=== PATIENT | female | born 1980 | race Hispanic/Latino ===

== ENCOUNTER 2018-10-16 17:09 | Emergency (ER) | payer SELFPAY ==
[2018-10-16] MEDS ORDERED: NA CHLORIDE 0.9% 1,000 ML ONE (18:37)
[2018-10-16] MEDS ORDERED: ACETAMINOPHEN 500 MG TAB ONE (18:37)
[2018-10-16] MEDS ORDERED: ASPIRIN 81 MG CHEWABLE TABLET ONE (18:38)
[2018-10-16 18:44] LABS: Absolute Lymphocytes (CBC) 3.4 K/uL (0.7-4.9); Absolute Monocytes 0.7 K/uL (0.1-1.3); Absolute Neutrophil 4.5 K/uL (1.8-8.0); Eosinophils % 1.6 % (0-4.4); Hematocrit 40.6 % (36.0-45.0); Lymphocytes % 38.8 % (15.3-44.8); MPV 8.5 fL (7.6-11.3); Monocytes % 7.6 % (3.3-12.3); RBC Red Blood Cell Count 4.51 M/uL (3.86-4.86)
[2018-10-16 18:48] LABS: Protime INR 0.93
[2018-10-16 19:19] LABS: ALT/SGPT 20 U/L (12-78); AST/SGOT 17 U/L (15-37); Alkaline Phosphatase 79 U/L (45-117); BUN Blood Urea Nitrogen 12 mg/dL (7-18); Bicarbonate 22 mmol/L (21-32); Bilirubin Direct < 0.1 mg/dL (0-0.2); Bilirubin Total 0.2 mg/dL (0.2-1.0); Glucose Level 88 mg/dL (74-106); Magnesium 2.2 mg/dL (1.8-2.4); NT PRO-BNP 33 pg/mL (<125); Potassium 3.7 mmol/L (3.5-5.1); Protein, Total 7.5 g/dL (6.4-8.2); Sodium Level 140 mmol/L (136-145); Troponin (Emerg Dept Use Only) < 0.02 ng/mL (0.0-0.045)
--- NOTE | 2018-10-16 19:55 | RAD REPORT ---
EXAM DESCRIPTION: RAD - Chest Single View - 10/16/2018 6:42 pm CLINICAL HISTORY: CHEST PAIN Chest pain. COMPARISON: No comparisons FINDINGS: Portable technique limits examination quality. The lungs are grossly clear. The heart is normal in size. No displaced fractures. IMPRESSION: No acute intrathoracic process suspected.
[2018-10-16 20:05] LABS: Urine Blood 2+ (NEG); Urine Glucose NEGATIVE (NEG); Urine Protein NEGATIVE (NEG); Urine Specific Gravity 1.025 (1.005-1.030)
[2018-10-16 20:05] LABS: Urine Specific Gravity 1.025 (1.005-1.030)
[2018-10-16] MEDS ORDERED: cloNIDine HCl 0.1 MG TAB ONE (20:05)
--- NOTE | 2018-10-16 21:06 | EDPHYS ---
Physician Documentation [facility] Name: Shoshana Elena Age: 38 yrs Sex: Female : 1980 Arrival Date: 10/16/2018 Time: 17:14 Bed 27 Private MD: ED Physician Rodríguez Luna HPI: 10/16 19:31 This 38 yrs old Female presents to ER via Ambulatory with complaints of High kb Blood Pressure. 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 kb Onset: The symptoms/episode began/occurred at 15:00. Associated signs and symptoms: Pertinent positives: chest pain, headache, Pertinent negatives: dizziness, dyspnea, lightheadedness, nausea, visual changes, vomiting, weakness. Severity of symptoms: At its worst the blood pressure was moderate, 174 mm Hg. The patient has not experienced similar symptoms in the past. The patient has not recently seen a physician. Pt reports she started having some chest pain at 1500. She went to the nurse's office and was told her bp was high so she needed to come to the ER for evaluation. States she has had this in the past and it was due to anxiety. States STAR testing starts tomorrow and she is very stressed about that. Historical: - Allergies: 17:20 No Known Allergies; ss - Home Meds: 17:20 Cymbalta oral oral as needed [Active]; ss - PMHx: 17:20 None; ss - PSHx: 17:20 None; ss - Immunization history:: Adult Immunizations up to date. - Social history:: Smoking status: Patient/guardian denies using tobacco. - Ebola Screening: : Patient denies exposure to infectious person Patient denies travel to an Ebola-affected area in the 21 days before illness onset. ROS: 19:33 Constitutional: Negative for fever, chills, and weight loss, Eyes: Negative for injury, kb pain, redness, and discharge, ENT: Negative for injury, pain, and discharge, Neck: Negative for injury, pain, and swelling, Respiratory: Negative for shortness of breath, cough, wheezing, and pleuritic chest pain, Abdomen/GI: Negative for abdominal pain, nausea, vomiting, diarrhea, and constipation, Back: Negative for injury and pain, : Negative for injury, bleeding, discharge, and swelling, MS/Extremity: Negative for injury and deformity, Skin: Negative for injury, rash, and discoloration. 19:33 Cardiovascular: Positive for chest pain, Negative for edema, orthopnea, palpitations, paroxysmal nocturnal dyspnea. 19:33 Neuro: Positive for headache, Negative for altered mental status, dizziness, gait disturbance, hearing loss, loss of consciousness, numbness, seizure activity, speech changes, syncope, near syncope, tingling, tinnitus, tremor, visual changes, weakness. Exam: 19:34 Constitutional: This is a well developed, well nourished patient who is awake, alert, kb and in no acute distress. Head/Face: Normocephalic, atraumatic. ENT: Nares patent. No nasal discharge, no septal abnormalities noted. Tympanic membranes are normal and external auditory canals are clear. Oropharynx with no redness, swelling, or masses, exudates, or evidence of obstruction, uvula midline. Mucous membranes moist. Neck: Trachea midline, no thyromegaly or masses palpated, and no cervical lymphadenopathy. Supple, full range of motion without nuchal rigidity, or vertebral point tenderness. No Meningismus. Chest/axilla: Normal chest wall appearance and motion. Nontender with no deformity. No lesions are appreciated. Cardiovascular: Regular rate and rhythm with a normal S1 and S2. No gallops, murmurs, or rubs. Normal PMI, no JVD. No pulse deficits. Respiratory: Lungs have equal breath sounds bilaterally, clear to auscultation and percussion. No rales, rhonchi or wheezes noted. No increased work of breathing, no retractions or nasal flaring. Abdomen/GI: Soft, non-tender, with normal bowel sounds. No distension or tympany. No guarding or rebound. No evidence of tenderness throughout. Back: No spinal tenderness. No costovertebral tenderness. Full range of motion. Skin: Warm, dry with normal turgor. Normal color with no rashes, no lesions, and no evidence of cellulitis. MS/ Extremity: Pulses equal, no cyanosis. Neurovascular intact. Full, normal range of motion. Neuro: Awake and alert, GCS 15, oriented to person, place, time, and situation. Cranial nerves II-XII grossly intact. Motor strength 5/5 in all extremities. Sensory grossly intact. Cerebellar exam normal. Normal gait. 20:49 ECG was reviewed by the Attending Physician. kb Vital Signs: 17:20 BP 174 / 119; Pulse 83; Resp 16; Temp 97.4; Pulse Ox 99% on R/A; Weight 74.84 kg; ss Height 5 ft. 1 in. (154.94 cm); Pain 6/10; 19:30 BP 151 / 106; Pulse 69; Pulse Ox 98% on R/A; jp3 19:56 BP 146 / 101; Pulse 62; Resp 11; Pulse Ox 99% ; rr5 20:25 BP 146 / 102 RA; Pulse 69; Resp 17 S; Pulse Ox 98% on R/A; rr5 20:45 BP 135 / 100 RA; Pulse 70; Resp 16 S; Pulse Ox 98% on R/A; rv 21:21 BP 123 / 92 RA; Pulse 57; Resp 16 S; Pulse Ox 98% on R/A; rv 17:20 Body Mass Index 31.18 (74.84 kg, 154.94 cm) ss MDM: 17:48 Patient medically screened. kb 19:34 Data reviewed: vital signs, nurses notes. Data interpreted: Pulse oximetry: on room air kb is 99 %. Interpretation: normal. 19:44 Counseling: I had a detailed discussion with the patient and/or guardian regarding: the kb historical points, exam findings, and any diagnostic results supporting the discharge/admit diagnosis, lab results, radiology results, the need for outpatient follow up, a family practitioner, to return to the emergency department if symptoms worsen or persist or if there are any questions or concerns that arise at home. 21:04 ED course: Chest pain and headache have resolved. Pt wants to go home to get some sleep kb so she can go to work in the morning. Educated to return for worsening symptoms or any other concerns. . 10/16 18:00 Order name: Basic Metabolic Panel; Complete Time: 19:20 kb 10/16 18:00 Order name: CBC with Diff; Complete Time: 18:50 kb 10/16 18:00 Order name: LFT's; Complete Time: 19:20 kb 10/16 18:00 Order name: Magnesium; Complete Time: 19:20 kb 10/16 18:00 Order name: NT PRO-BNP; Complete Time: 19:20 kb 10/16 18:00 Order name: PT-INR; Complete Time: 18:50 kb 10/16 17:25 Order name: EKG; Complete Time: 17:25 ss 10/16 18:00 Order name: Troponin (emerg Dept Use Only); Complete Time: 19:20 kb 10/16 18:00 Order name: XRAY Chest (1 view); Complete Time: 19:57 kb 10/16 19:59 Order name: Urine Dipstick--Ancillary (enter results); Complete Time: 20:06 ar5 10/16 20:00 Order name: Urine --Ancillary (enter results); Complete Time: 20:06 ar5 10/16 17:25 Order name: EKG - Nurse/Tech; Complete Time: 17:32 ss 10/16 18:00 Order name: Cardiac monitoring; Complete Time: 18:29 kb 10/16 18:00 Order name: IV Saline Lock; Complete Time: 18:27 kb 10/16 18:00 Order name: Labs collected and sent; Complete Time: 18:27 kb 10/16 18:00 Order name: O2 Per Protocol; Complete Time: 18:27 kb 10/16 18:00 Order name: O2 Sat Monitoring; Complete Time: 18:27 kb 10/16 19:31 Order name: Vital Signs; Complete Time: 19:38 kb EC:49 Rate is 73 beats/min. Rhythm is regular, Normal Sinus Rhythm. QRS [place] is Normal. MA kb interval is normal at 146 msec. QRS interval is normal at 68 msec. QT interval is normal at 382 msec. Clinical impression: Normal ECG. Interpreted by me. Reviewed by me. Administered Medications: 18:28 Drug: Aspirin Chewable Tablet 324 mg Route: PO; rv 19:58 Follow up: Response: No adverse reaction rr5 18:29 Drug: Tylenol 1000 mg Route: PO; rv 19:58 Follow up: Response: Pain is decreased rr5 19:50 Drug: cloNIDine 0.1 mg Route: PO; rr5 20:46 Follow up: Response: Blood pressure is lowered rv Disposition: 10/17 07:30 Co-signature as Attending Physician, Rodríguez Luna MD. rn Disposition: 10/16/18 21:06 Discharged to Home. Impression: Chest pain, unspecified. - Condition is Stable. - Discharge Instructions: Nonspecific Chest Pain, [id number], Hypertension, [id number], How to Take Your Blood Pressure, [id number]. - Work release form, Medication Reconciliation Form, Thank You Letter, Antibiotic Education, Prescription Opioid Use form. - Follow up: Emergency Department; When: As needed; Reason: Worsening of condition. Follow up: Private Physician; When: 2 - 3 days; Reason: Recheck today's complaints, Continuance of care, Re-evaluation by your physician. Signatures: Dispatcher [employer] EDMS Cheryle Rojas, LINEN FOLDER-C LINEN FOLDER-Ckb Rodríguez Luna MD MD rn Smirch, Shelby, RN RN ss Nii Askew RN RN rv Rod Eric RN RN rr5 Corrections: (The following items were deleted from the chart) 10/16 21:05 21:04 ED course: Chest pain and headache have resolved. Pt wants to go home to get some kb sleep so she can go to work in the morning. Educated to return for worsening symptoms. . kb 21:22 21:06 10/16/2018 21:06 Discharged to Home. Impression: Chest pain, unspecified. rv Condition is Stable. Forms are Medication Reconciliation Form, Thank You Letter, Antibiotic Education, Prescription Opioid Use. Follow up: Emergency Department; When: As needed; Reason: Worsening of condition. Follow up: Private Physician; When: 2 - 3 days; Reason: Recheck today's complaints, Continuance of care, Re-evaluation by your physician. kb
--- NOTE | 2018-10-16 21:06 | ER ---
Nurse's Notes [facility] Name: Shoshana Elena Age: 38 yrs Sex: Female : 1980 Arrival Date: 10/16/2018 Time: 17:14 Bed 27 Private MD: Diagnosis: Chest pain, unspecified Presentation: 10/16 17:19 Presenting complaint: Patient states: "I was at the school and I had some chest pains. ss They took my blood pressure and said it was high and that I should come in.". Transition of care: patient was not received from another setting of care. Onset of symptoms was October 16, 2018. Risk Assessment: Do you want to hurt yourself or someone else? Patient reports no desire to harm self or others. Initial Sepsis Screen: Does the patient meet any 2 criteria? No. Patient's initial sepsis screen is negative. Does the patient have a suspected source of infection? No. Patient's initial sepsis screen is negative. Care prior to arrival: None. 17:19 Method Of Arrival: Ambulatory ss 17:19 Acuity: TABITHA 3 ss Historical: - Allergies: 17:20 No Known Allergies; ss - Home Meds: 17:20 Cymbalta oral oral as needed [Active]; ss - PMHx: 17:20 None; ss - PSHx: 17:20 None; ss - Immunization history:: Adult Immunizations up to date. - Social history:: Smoking status: Patient/guardian denies using tobacco. - Ebola Screening: : Patient denies exposure to infectious person Patient denies travel to an Ebola-affected area in the 21 days before illness onset. Screenin:37 Abuse screen: Denies threats or abuse. Denies injuries from another. Nutritional rv screening: No deficits noted. Tuberculosis screening: No symptoms or risk factors identified. Fall Risk None identified. Assessment: 17:35 General: Appears in no apparent distress. comfortable, Behavior is calm, cooperative. rv Pain: Complains of pain in chest. Neuro: Level of Consciousness is awake, alert, obeys commands, Oriented to person, place, time, situation. Cardiovascular: Capillary refill < 3 seconds. Respiratory: Airway is patent. GI: No signs and/or symptoms were reported involving the gastrointestinal system. : No signs and/or symptoms were reported regarding the genitourinary system. EENT: No signs and/or symptoms were reported regarding the EENT system. Derm: Skin is intact. Musculoskeletal: No signs and/or symptoms reported regarding the musculoskeletal system. 19:58 Reassessment: Patient appears in no apparent distress at this time. No changes from rr5 previously documented assessment. Patient and/or family updated on plan of care and expected duration. Pain level reassessed. Patient is alert, oriented x 3, equal unlabored respirations, skin warm/dry/pink. Vital Signs: 17:20 BP 174 / 119; Pulse 83; Resp 16; Temp 97.4; Pulse Ox 99% on R/A; Weight 74.84 kg; ss Height 5 ft. 1 in. (154.94 cm); Pain 6/10; 19:30 BP 151 / 106; Pulse 69; Pulse Ox 98% on R/A; jp3 19:56 BP 146 / 101; Pulse 62; Resp 11; Pulse Ox 99% ; rr5 20:25 BP 146 / 102 RA; Pulse 69; Resp 17 S; Pulse Ox 98% on R/A; rr5 20:45 BP 135 / 100 RA; Pulse 70; Resp 16 S; Pulse Ox 98% on R/A; rv 21:21 BP 123 / 92 RA; Pulse 57; Resp 16 S; Pulse Ox 98% on R/A; rv 17:20 Body Mass Index 31.18 (74.84 kg, 154.94 cm) ss ED Course: 17:14 Patient arrived in ED. mr 17:19 Triage completed. ss 17:20 Arm band placed on right wrist. ss 17:21 Nii Askew, RN is Primary Nurse. rv 17:37 Patient has correct armband on for positive identification. Placed in gown. Bed in low rv position. Call light in reach. Side rails up X 1. Adult w/ patient. Pulse ox on. NIBP on. 17:48 Cheryle Rojas FNP-C is PHCP. kb 17:48 Rodríguez Luna MD is Attending Physician. kb 18:25 Initial lab(s) drawn, by me, sent to lab. Inserted saline lock: 22 gauge in right jp3 forearm, using aseptic technique. Blood collected. 18:27 Troponin (emerg Dept Use Only) Sent. jp3 18:27 Basic Metabolic Panel Sent. jp3 18:27 CBC with Diff Sent. jp3 18:27 LFT's Sent. jp3 18:27 Magnesium Sent. jp3 18:27 PT-INR Sent. jp3 18:27 NT PRO-BNP Sent. jp3 18:40 XRAY Chest (1 view) In Process Unspecified. EDMS 21:21 No provider procedures requiring assistance completed. IV discontinued, intact, rv bleeding controlled, No redness/swelling at site. Pressure dressing applied. Administered Medications: 18:28 Drug: Aspirin Chewable Tablet 324 mg Route: PO; rv 19:58 Follow up: Response: No adverse reaction rr5 18:29 Drug: Tylenol 1000 mg Route: PO; rv 19:58 Follow up: Response: Pain is decreased rr5 19:50 Drug: cloNIDine 0.1 mg Route: PO; rr5 20:46 Follow up: Response: Blood pressure is lowered rv Outcome: 21:06 Discharge ordered by . kb 21:21 Discharged to home ambulatory. rv 21:21 Condition: good 21:21 Discharge instructions given to patient, Instructed on discharge instructions, follow up and referral plans. Demonstrated understanding of instructions, follow-up care. 21:22 Patient left the ED. rv Signatures: Dispatcher [employer] EDMS Cheryle Rojas, SIDE SAWYER-C SIDE SAWYER-Gisselle Hammer mr Gina Perez, RN RN Nii Askew, RN RN rv Chris Serrato jp3 Rod Eric, RN RN rr5
--- NOTE | 2018-10-17 11:46 | EKG ---
Test Date: 2018-10-16 Test Time: 17:29:58 Provider Relations Specialist: MEASUREMENT RESULTS: Intervals: Rate: 73 [place]: 146 QRSD: 68 QT: 382 QTc: 420 [place]: P: 58 NJ: 146 QRS: 66 T: 37 INTERPRETIVE STATEMENTS: Normal sinus rhythm Normal ECG No previous ECG available for comparison Electronically Signed On 10-17-18 10:05:50 CDT by Jason Altamirano
== END 2018-10-16 21:22 | disposition home or self-care (01) ==
LOC: ER 17:09
DX: R07.9 Chest pain, unspecified (principal)
CPT/HCPCS: 36415; 71045; 80048; 80076; 81003; 81025; 83735; 83880; 84484; 85025; 85610; 93005; 99284; J7030

== ENCOUNTER 2024-08-08 19:47 | Emergency (ER) | payer OTHER, SELFPAY ==
--- OUTSIDE RECORDS SUMMARY | 2024-08-08 19:51 | XMS REPORT | Continuity of Care Document ---
Author Name Unknown Address [address] [facility] [address] [place] [address] [facility] thconnect Address [address] [facility]. [address] [place] [address] Care Team Providers Care Instrument Technician Apprentice Name Role Phone Pcp, Patient Does Not Have A Primary Care Physic mirna Campaigns, Generic Provider Attending Clinician Unavailable GEORGINA VELEZ Attending Clinician Unavailable Georgina Choe Attending Clinician [phone] Ivis Kearns DO Attending Clinician [phone] IVIS KEARNS Attending Clinician Unavailab le Therapy, Adc Covid Infusion Attending Clinician Unavailable Ricardo Carballo MD Attending Clinician [phone] RICARDO CARBALLO Attending Clinician Unavailable Doctor Unassigned, Demorest Attending Clinician U Shanel Harris MD Attending Clinician [phone] SHANEL GONZALEZ Attending Clinician Unavailable Lidia Quick Attending Clinician [phone] LIDIA CARRERO Attending Clinician Unavailable GEORGINA VELEZ Admitting Clinician Unavailable IVIS KEARNS Admitting Clinician Unavailab serena Payers Payer Name Policy Type Policy Number Effective Date Expirati on Date Source [facility]MERLY [facility] [id number] 2015 00:00:00 Problems Condition Name Condition Details Condition Category Status Onset Date Resolution Date Last Treatment Date Treating Clinician Comments Source SLE exacerbati on SLE exacerbati on Disease Active 12-03 00:00: 00 [facility] Allergies, Adverse Reactions, Alerts Allergy Name Allergy Type Status Severity Reaction(s) Onset Date Inactive Date Treating Clinician Comments Source NO KNOWN ALLERGIE S Drug Class Active [facility] Social History Social Habit Start Date Stop Date Quantity Comments Source [facility] SDOH Alcohol Frequency [facility] History SDOH Alcohol Std Drinks [facility] History SDOH Alcohol Binge [facility] Exposure to SARS-CoV-2 (event) 2022-04-07 00:00:00 2022-04-17 13:33:00 Not sure [facility] Alcoholic beverage intake 2022-04-17 00:00:00 2022-04-17 00:00:00 Current drinker of alcohol (finding) [facility] History of Social function 2022-04-17 00:00:00 2022-04-17 00:00:00 [facility] Alcohol intake 2022-04-17 00:00:00 2022-04-17 00:00:00 Current drinker of alcohol (finding) [facility] Tobacco use and exposure 2017-12-02 00:00:00 2017-12-02 00:00:00 Smokeless tobacco non-user [facility] Alcohol Comment 2017-12-02 00:00:00 2017-12-02 00:00:00 occasional [facility] Sex assigned at 1980 00:00:00 1980 00:00:00 [facility] Smoking Status Start Date Stop Date Source Never smoked tobacco [facility] Medications Ordered Medication Name Filled Medication Name Start Date Stop Date Current Medication? Ordering Clinician Indication Dosage Frequency Signature (SIG) Comments Components Source iopamidol (ISOVUE 370-500 mL) injection 100 mL 11-16 16:15: 00 11-16 16:15 :00 No [id number] 100mL 100 mL, Intravenou s, ONCE, 1 dose, On Ayanna 11/17/23 at 1115, Routine [facility] LORazepam (ATIVAN) injection 1 mg 11-16 15:45: 00 11-16 15:49 :00 No 1mg 1 mg, Slow IV Push, ONCE, 1 dose, On Ayanna 11/17/23 at 1045, STAT [facility] aspirin chewable tablet 324 mg 11-16 14:30: 00 11-16 14:31 :00 No 324mg 324 mg, Oral, ONCE, 1 dose, On Ayanna 11/17/23 at 0930, STAT [facility] hydrOXYzine 25 mg tablet 11-16 00:00: 00 Yes [id number] 25mg Take 1 tablet by mouth every 8 (eight) hours as needed for Anxiety. [facility] ketorolac (TORADOL) injection 15 mg 2021-07 18:45: 00 04-17 18:40 :00 No 15mg 15 mg, Slow IV Push, ONCE, 1 dose, On 04/17/22 at 1345, AURELIO [facility] casirivimab -imdevimab (REGEN-COV (EUA)) injection (CO-FORMULA TION) 1,200 mg 2020-07 01:15: 00 06-30 23:58 :00 No [id number] 1200mg 1,200 mg, Subcutaneo us, ONCE, 1 dose, On Tue06/30/21 at 1915, Routine [facility] diazePAM (VALIUM) injection 5 mg 2019-07 05:30: 00 04-28 04:26 :00 No 5mg 5 mg, Slow IV Push, ONCE, 1 dose, 04/28/20 at 0030, STAT [facility] meclizine 25 mg tablet 2019-07 00:00: 00 Yes [id number] 25mg Take 1 tablet by mouth every 6 (six) hours. [facility] ondansetron (ZOFRAN) 4 mg tablet 2019-07 00:00: 00 Yes [id number] 4mg Take 1 tablet by mouth every 8 (eight) hours as needed for Nausea and Vomiting (N/V). [facility] aspirin tablet 325 mg 10-08 05:00: 00 10-08 03:53 :00 No 325mg 325 mg, Oral, ONCE, 1 dose, 10/09/19 at 0000, STAT [facility] traMADOL 50 mg tablet 7-08 00:00: 00 10-07 00:00 :00 No 50mg Take 1 tablet by mouth every 6 (six) hours as needed for Pain (scale 7-10). [facility] ondansetron 4 mg disintegrat ing tablet 5 00:00: 00 10-07 00:00 :00 No 4mg Take 1 tablet by mouth every 8 (eight) hours as needed for Nausea and Vomiting (N/V). [facility] cyclobenzap rine (FLEXERIL) 5 mg tablet 09-10 00:00: 00 10-07 00:00 :00 No 5mg Take 1 Tab by mouth 3 (three) times daily as needed for Muscle Spasms (best use is at night before bed). [facility] Vital Signs Vital Name Observation Time Observation Value Comments S ource Systolic blood pressure 2023-11-17 18:00:00 129 mm[Hg] [facility] Diastolic blood pressure 2023-11-17 18:00:00 93 mm[Hg] [facility] Heart rate 2023-11-17 18:00:00 89 /min [facility] Respiratory rate 2023-11-17 18:00:00 16 /min [facility] Oxygen saturation in Arterial blood by Pulse oximetry 2023-11-17 18:00:00 100 /min [facility] Body temperature 2023-11-17 14:07:00 36.94 Betty [facility] Body height 2023-11-17 14:07:00 154.9 cm [facility] Body weight 2023-11-17 14:07:00 77.111 kg [facility] BMI 2023-11-17 14:07:00 32.12 kg/m2 [facility] Systolic blood pressure 2022-04-17 20:45:00 131 mm[Hg] [facility] Diastolic blood pressure 2022-04-17 20:45:00 104 mm[Hg] [facility] Body temperature 2022-04-17 20:45:00 36.67 Betty [facility] Heart rate 2022-04-17 20:30:00 70 /min [facility] Respiratory rate 2022-04-17 20:30:00 17 /min [facility] Oxygen saturation in Arterial blood by Pulse oximetry 2022-04-17 20:30:00 100 /min [facility] Body height 2022-04-17 18:24:00 154.9 cm [facility] Body weight 2022-04-17 18:24:00 74.844 kg [facility] BMI 2022-04-17 18:24:00 31.18 kg/m2 [facility] Systolic blood pressure 2021-07-01 00:43:00 145 mm[Hg] [facility] Diastolic blood pressure 2021-07-01 00:43:00 105 mm[Hg] [facility] Heart rate 2021-07-01 00:43:00 85 /min [facility] Body temperature 2021-07-01 00:43:00 36.44 Betty [facility] Respiratory rate 2021-07-01 00:43:00 16 /min [facility] Oxygen saturation in Arterial blood by Pulse oximetry 2021-07-01 00:43:00 96 /min [facility] Body height 2021-06-30 23:57:00 154.9 cm [facility] Body weight 2021-06-30 23:57:00 75.297 kg [facility] BMI 2021-06-30 23:57:00 31.37 kg/m2 [facility] Systolic blood pressure 2020-04-28 05:00:00 119 mm[Hg] [facility] Diastolic blood pressure 2020-04-28 05:00:00 79 mm[Hg] [facility] Heart rate 2020-04-28 05:00:00 63 /min [facility] Respiratory rate 2020-04-28 05:00:00 13 /min [facility] Oxygen saturation in Arterial blood by Pulse oximetry 2020-04-28 05:00:00 95 /min [facility] Body temperature 2020-04-28 02:40:00 36.89 Betty [facility] Body weight 2020-04-28 02:40:00 76.204 kg [facility] BMI 2020-04-28 02:40:00 31.74 kg/m2 [facility] Systolic blood pressure 2019-10-09 05:59:00 127 mm[Hg] [facility] Diastolic blood pressure 2019-10-09 05:59:00 87 mm[Hg] [facility] Heart rate 2019-10-09 05:59:00 74 /min [facility] Respiratory rate 2019-10-09 05:59:00 19 /min [facility] Oxygen saturation in Arterial blood by Pulse oximetry 2019-10-09 05:59:00 98 /min [facility] Body temperature 2019-10-09 03:20:00 37.17 Betty [facility] Body height 2019-10-09 03:20:00 154.9 cm [facility] Body weight 2019-10-09 03:20:00 77.111 kg [facility] BMI 2019-10-09 03:20:00 32.12 kg/m2 [facility] Procedures Procedure Date / Time Performed Performing Clinician Source TROPONIN I 2023-11-17 17:29:00 eGorgina Velez [facility] XR CHEST 1 VW 2023-11-17 15:33:22 Georgina Velez [facility] CT ANGIOGRAM CHEST 2023-11-17 15:20:30 Georgina Velez [facility] CT ANGIOGRAM ABDOMEN/PELVIS 2023-11-17 15:20:30 Georgina Velez [facility] TROPONIN I 2023-11-17 14:32:00 Georgina Velez [facility] COMP. METABOLIC PANEL ([id number]) 2023-11-17 14:32:00 Georgina Velez [facility] CBC WITH DIFF 2023-11-17 14:32:00 Georgina Velez [facility] N-TERMINAL PRO-BNP 2023-11-17 14:32:00 Goergina Velez [facility] HB ECG ROUTINE & RHYTHM STRIP 2023-11-17 14:10:39 Georgina Velez [facility] XR CHEST 1 VW 2022-04-17 18:49:55 Ivis Kearns [facility] CONSENT/REFUSAL FOR DIAGNOSIS AND TREATMENT 2022-04-17 18:39:23 Doctor Unassigned, Demorest [facility] MAGNESIUM 2022-04-17 18:36:00 Ivis Kearns [facility] TROPONIN I 2022-04-17 18:36:00 Ivis Kearns [facility] COMP. METABOLIC PANEL ([id number]) 2022-04-17 18:36:00 Ivis Kearns [facility] CBC WITH DIFF 2022-04-17 18:36:00 Ivis Kearns [facility] HB ECG ROUTINE & RHYTHM STRIP 2022-04-17 18:25:36 Ivis Kearns [facility] IMMTRAC2 CONSENT 2021-06-30 06:01:00 Doctor Unas signed, Demorest [facility] CT HEAD WO CONTRAST 2020-04-28 04:41:21 Shanel Gonzalez [facility] POCT TEST 2020-04-28 03:51:00 Shanel Gonzalez [facility] URINALYSIS 2020-04-28 03:50:00 Shanel Gonzalez [facility] COMP. METABOLIC PANEL ([id number]) 2020-04-28 03:27:00 Shanel Gonzalez [facility] CBC WITH DIFF 2020-04-28 03:27:00 Shanel Gonzalez [facility] EKG-12 LEAD 2020-04-28 03:25:38 Shanel Gonzalez [facility] TROPONIN I 2019-10-09 04:03:00 Lidia Carrero [facility] COMP. METABOLIC PANEL ([id number]) 2019-10-09 04:03:00 Lidia Carrero [facility] CBC WITH DIFFERENTIAL 2019-10-09 04:03:00 Lidia Carrero [facility] D-DIMER 2019-10-09 04:03:00 Lidia Carrero [facility] ASSIGNMENT OF BENEFITS 2019-10-09 03:14:13 Docto r Unassigned, Demorest [facility] Encounters Start Date/Time End Date/Time Encounter Type Admission Type Attending Clinicians Care Facility Care Department Encounter ID Source 2022-08-14 16:00:51 Outpatient [facility] [id number] [facility] 2023-11-30 00:00:00 2023-11-30 10:22:00 Letter (Out) Campaigns, Generic Provider [facility] [id number] 350.1.13.10 4.2.7.2.686 [id number] [facility] 2023-11-17 09:08:00 2023-11-17 13:36:00 Emergency X GEORGINA VELEZ [facility] ERT [id number] [facility] 2023-11-17 09:08:00 2023-11-17 13:36:00 Emergency Georgina Velez [facility] [id number] 350.1.13.10 4.2.7.2.686 [id number] [facility] 2022-04-17 13:22:00 2022-04-17 16:05:00 Emergency Ivis Kearns [facility] 1.2.840.114 350.1.13.10 4.2.7.2.686 [id number] [facility] 2022-04-17 13:22:00 2022-04-17 16:05:00 Emergency IVIS ROBERTS [facility] ERT [id number] [facility] 2021-06-30 18:00:00 2021-06-30 19:00:00 Nurse Visit Therapy, Adc Covid Infusion Ricardo Carballo [facility] 1.2840.114 350.1.13.10 4.2.7.2.686 [id number] [facility] 2021-06-30 18:00:00 2021-06-30 18:00:00 Outpatient R RICARDO CARBALLO [facility] [id number] [facility] 2021-06-30 00:00:00 2021-06-30 00:00:00 Orders Only Doctor Unassigned, Demorest [facility] 1.2840.114 350.1.13.10 4.2.7.2.686 [id number] [facility] 2020-04-27 21:36:00 2020-04-28 00:59:00 Emergency Shanel Gonzalez [facility] 1.2840.114 350.1.13.10 4.2.7.2.686 [id number] [facility] 2020-04-27 21:36:00 2020-04-27 21:36:00 Emergency X SHANEL GONZALEZ [facility] ERT [id number] [facility] 2019-10-08 22:22:52 2019-10-09 01:15:00 Emergency Cody Lidia Torres [facility] 1.2840.114 350.1.13.10 4.2.7.2.686 [id number] [facility] 2019-10-08 22:22:52 2019-10-08 22:22:52 Emergency X ATUL CARREROYA [facility] ERT [id number] [facility] Results Test Description Test Time Test Comments Results Result Co mments Source [facility] [id number] 16:06:05HISTORY: Rule out AAA TECHNIQUE: Contrast-enhanced 64-mutidetector CT scan of the chest wascompleted with intravenous injection of ?non ionic contrast medium.Subsequently numerous sagittal, coronal and MIP reformations weregenerated. FINDINGS: The right lobe of the thyroid gland contains a 7 mm nodule.Trachea is deviated slightly toward the right side without any evidentlesion. Bronchial airways appear normal. Lung parenchyma showed subtle groundglass hazy changes without focalconsolidation. Nopneumothorax or pneumomediastinum. No pleural effusion orpericardial effusion. No enlarged lymph nodes in the javon or themediastinum. Chest wall soft tissues appear normal. No acute pulmonary thromboembolism detected. No significant coronaryatherosclerosis Bones showed no aggressive lesions or any acute findings. *Aortic root: 3.2 cm. *Ascending aorta: 3.2 ?cm proximal segment, ?3.2 cm distal segment. *Aortic arch: 2.7 cm in mid segment. *Descending aorta: 2.2 cm proximal segment, ?2.0 cm at the level ofdiaphragm. *Pulmonary artery: Main pulmonary artery is 2.3 cm. CONCLUSIONS: Essentially normal [facility]/[id number] 16:00:12HISTORY: Concern for AAA. TECHNIQUE: Spiral 64-Multidetector studies were obtained before and aftercontrast injection. CT angiography of the abdominal aorta and majorintra-abdominal arteries using nonionic contrast medium. Subsequentlymultiplanar reformations, volume rendering 3-D angiographic images of therenal arteries were generated. DOSE: ?Up-to-date CT equipment and radiation dose reduction techniques wereemployed. CTDIvol: ?1.19+12.24+1.2 to +4.90+11.7 mGy. DLP:1.68+2.38+586+1.22 +4.90+805 MGy-cm. FINDINGS: Lower visualized lungs appear clear. Small hiatal hernia noted. Focal area of flash enhancement of the liver parenchyma noted in bothparietal lobe and left lobe. No suspicious liver lesions are visualized.Mild thickening of the gallbladder wall is noted. No gallstones visualized.Liver is 12.8 cm and spleen is 10.5 cm. Biliary ducts and the pancreaticduct appear of normal size. Posterior wall of the fundus of uterus showed 1.7 cm diverticulum.Generalized diverticulosis noted of large bowel without any focal acutechanges of diverticulitis. Normal appendix is visualized. No kidney stones detected. No enhancing kidney lesions. No obstructivehydronephrosis or hydroureter. Uterus is bulky, measuring 11.4 from fundus to external os of the cervix,4.9 cm in AP and 6.8 cm in transverse diameter. Asymmetrical thickening ofthe posterior wall of the lower body of the uterus noted without discretefibroid. Multiple subcentimeter cysts are seen in both ovaries and there isone 2.8 cm cyst adjacent to the right ovary in posterior cul-de-sac. Unopacified urinary bladder showed no gross pathology. A smallfat-containing umbilical hernia noted without any complications.No aggressive bone lesions or any acute changes in visualized bonesdetected. Abdominal aortogram: Entire abdominalaorta is well visualized and showedno atherosclerosis except for minimal focal calcification in theleftlateral wall close to the origin of left renal artery. No abdominal aorticaneurysm detected. 2 right renal arteries and one left renal artery noted supplying thekidneys. Celiac axis, SMA and EM a rteries are all normal. Common iliac, internal iliac, external iliac and common femoral arteries aswell as proximal segments of SFA/profunda arteries appear normal. CONCLUSIONS: Essentially normal CTscan of abdomen without and withcontrast, including CT angiogram studies. No abdominal aortic aneury smdetected.[facility] 1 [id number] 15:40:10 HISTORY: STEMI. TECHNIQUE: Portable AP view of the chest is obtained. Comparison is madewith 04/17/2022 study. FINDINGS: No acute pneumonia. No pneumothorax or pleural effusion orpulmonary congestion detected. Cardiac size is within normal limits. CONCLUSIONS: No signs of acute cardiopulmonary disease.[facility] Center[facility]roponin [id number] 15:21:38* Test Item Value Reference Range Interpretation Comme nts TROPONIN I (test code = 2072142279) 0.002 ng/mL <=0.034 VINEET (test code = VINEET) Reference (Normal) Range (defined by the 99th percentile reference limit): <= 0.034 ng/mL Note: Cardiac troponin begins to rise 3-4 hours after the onset of ischemia. Repeat in 4-6 hours if the sample was drawn within 3-4 hours of the onset of the symptom and found normal. Diagnosis of myocardial injury is made with acute changes in cTn concentrations with at least one serial sample above the 99th percentile upper reference limit (URL), taken together with the patient's clinical presentation. Biotin has been reported to cause a negative bias, interpret results relative to patient's use of biotin. Lab Interpretation (test code = 51049-3) Normal [facility] Oom-[id number] 15:18:57* Test Item Value Reference Range Interpretation Comme nts NT-proBNP (test code = 16449-7) 32 pg/mL <=125 Lab Interpretation (test cod e = 86491-2) Normal [id number] 15:09:55* Test Item Value Reference Range Interpretation Comme nts NA (test code = 0841785799) 138 mmol/L 135-145 K (test code = 7997228596) 4.3 mmol/L 3.5-5.0 CL (test code = 1659653849) 104 mmol/L 98-108 CO2 TOTAL (test code = 8688202810) 26 mmol/L 23-31 AGAP (test code = 3819388897) 8 2-16 BUN (test code = 7035317300) 10 mg/dL 7-23 GLUCOSE (test code = 5726718303) 105 mg/dL 70-110 CREATININE (test code = 2160-0) 0.85 mg/dL 0.50-1.04 TOTAL BILI (test code = 2537819231) 0.5 mg/dL 0.1-1.1 CALCIUM (test code = 6609848386) 9.2 mg/dL 8.6-10.6 T PROTEIN (test code = 8240576363) 7.8 g/dL 6.3-8.2 ALBUMIN (test code = 8428734835) 4.6 g/dL 3.5-5.0 ALK PHOS (test code = 3673250495) 82 U/L 34-122 ALTv (test code = 1742-6) 18 U/L 5-35 AST(SGOT) (test code = 9714466670) 33 U/L 13-40 eGFR (test code = 95749-1) 86.8 mL/min/1.73m2 CKD-EPI eGFR (20 21). Assuming creatinine has been stable day-to-day for at least three months, the eGFR indicates Category G2 (60 - 89 mL/min/1.73 m2) [facility] with [id number] 14:57:37* Test Item Value Reference Range Interpretation Comme nts WBC (test code = 6690-2) 8.45 4.30-11.10 RBC (test code = 789-8) 4.96 3.93-5.25 HGB (test code = 718-7) 13.1 g/dL 11.6-15.0 HCT (test code = 4544-3) 41.3 % 35.7-45.2 MCV (test code = 787-2) 83.3 fL 80.6-95.5 MCH (test code = 785-6) 26.4 pg 25.9-32.8 MCHC (test code = 786-4) 31.7 g/dL 31.6-35.1 RDW-SD (test code = 37898-2) 42.3 fL 39.0-49.9 RDW-CV (test code = 788-0) 14.0 % 12.0-15.5 PLT (test code = 777-3) 410 166-358 H MPV (test code = 12800-4) 9.9 fL 9.5-12.9 NRBC/100 WBC (test code = 5296729678) 0.0 0.0-10.0 NRBC x10^3 (test code = 9811892984) See_Comment [Automated messa ge] The system which generated this result transmitted reference range: 10*3/?L. The reference range was not used to interpret this result as normal/abnormal. GRAN MAT (NEUT) % (test code = 770-8) 60.0 % IMM GRAN % (test code = 2058629269) 0.40 % LYMPH % (test code = 736-9) 29.2 % MONO % (test code = 5905-5) 7.5 % EOS % (test code = 713-8) 2.2 % BASO % (test code = 706-2) 0.7 % GRAN MAT x10^3(ANC) (test code = 0686858749) 5.07 10*3/uL 1.88-7.09 IMM GRAN x10^3 (test code = 1862749571) 0.03 10*3/uL 0.00-0.06 LYMPH x10^3 (test code = 731-0) 2.47 10*3/uL 1.32-3.29 MONO x10^3 (test code = 742-7) 0.63 10*3/uL 0.33-0.92 EOS x10^3 (test code = 711-2) 0.19 10*3/uL 0.03-0.39 BASO x10^3 (test code = 704-7) 0.06 10*3/uL 0.01-0.07 Lab Interpretation (test code = 02252-3) Abnormal [facility] [id number] 05:12:11No acute intracranial abnormality. Preliminary Report Dictated by Resident: Alfonso Chery I, Randy Ovalles MD., have reviewed this study and agree with theabove report.EXAM: CT HEAD WO CONTRAST HISTORY: ?Dizziness, non-specific TECHNIQUE: Spiral CT head without contrast with 2.5 mm thickness and withcoronal and sagittal reconstruction. COMPARISON: None FINDINGS: The ventricles and cerebral sulci are normal in caliber and configuration.No hydrocephalus, midline shift or pathological extra-axial fluidcollection is present. The basal cisterns are unremarkable. There is no acute intracranialhemorrhage or significant mass effect. Noparenchymal attenuation abnormality. The montoya-white matter differentiationis preserved. The mastoid air cells and paranasal air sinuses are clear. The calvarium and central skull base are unremarkable. [facility], Radiant Results Inft User - 04/28/2020 12:13 AM CDTEXAM: CT HEAD WO CONTRASTHISTORY: Dizziness, non-specific TECHNIQUE: Spiral CT head without contrast with 2.5 mm thickness and withcoronal and sagittal reconstruction.COMPARISON: None FINDINGS:The ventricles and cerebral sulci are normal in caliber and configuration.No hydrocephalus, midline shift or pathological extra-axial fluidcollection is present. The basal cisterns are unremarkable.There isno acute intracranial hemorrhage or significant mass effect. Noparenchymal attenuation abnormality.The montoya-white matter differentiationis preserved.The mastoid air cells and paranasal air sinuses are clear. The calvarium and central skull base are unremarkable.IMPRESSIONNo acute intracranial abnormality.Preliminary Report Dictated by Resident: Alfonso Kiser Randy Ovalles MD., have reviewed this study and agree with theabove report.[facility] [id number] 04:50:00* Test Item Value Reference Range Interpretation Comme nts APPEARANCE (test code = 7914446561) Cloudy Clear A COLOR (test code = 8743301654) Yellow Yellow PH (test code = 8725946634) 4.8-8.0 SP GRAVITY (test code = 7180351148) 1.003-1.030 GLU U QUAL (test code = 7404342999) Normal Normal BLOOD (test code = 4780962031) 2+ Negative A KETONES (test code = 6427537985) Negative Negative PROTEIN (test code = 2887-8) Negative Negative UROBILIN (test code = 5863606126) Normal Normal BILIRUBIN (test code = 0854098865) Negative Negative NITRITE (test code = 1438971247) Positive Negative A LEUK DANIEL (test code = 6634527299) Negative Negative RBC/HPF (test code = 5744530736) See_Comment [Automated messa ge] The system which generated this result transmitted reference range: 0 - 3 HPF. The reference range was not used to interpret this result as normal/abnormal. WBC/HPF (test code = 4717761363) See_Comment [Automated messa ge] The system which generated this result transmitted reference range: 0 - 5 HPF. The reference range was not used to interpret this result as normal/abnormal. BACTERIA (test code = 5363077973) Few Negative A MUCOUS (test code = 6077781365) Slight Negative LPF A SQ EPITH (test code = 5607903122) HPF YEAST BUD (test code = 1454090614) See_Comment H [Automated messa ge] The system which generated this result transmitted reference range: <=1 HPF. The reference range was not used to interpret this result as normal/abnormal. Lab Interpretation (test code = 32798-4) [facility][id number][facility]2020-[facility]-28 04:20:00* Test Item Value Reference Range Interpretation Comme nts NA (test code = 8678732986) 138 mmol/L 135-145 K (test code = 4360672266) 3.7 mmol/L 3.5-5 CL (test code = 1705802835) 104 mmol/L 98-108 CO2 TOTAL (test code = 1112676071) 25 mmol/L 23-31 AGAP (test code = 4042645874) 2-16 BUN (test code = 1157079035) 17 mg/dL 7-23 GLUCOSE (test code = 7651200660) 101 mg/dL 70-110 CREATININE (test code = 5298460922) 0.78 mg/dL 0.5-1.04 TOTAL BILI (test code = 4623929820) 0.4 mg/dL 0.1-1.1 CALCIUM (test code = 0736943980) 8.6 mg/dL 8.6-10.6 T PROTEIN (test code = 7814787945) 6.7 g/dL 6.3-8.2 ALBUMIN (test code = 1273963721) 3.9 g/dL 3.5-5 ALK PHOS (test code = 1493299538) 58 U/L 34-122 ALTv (test code = 1742-6) 19 U/L 5-35 AST(SGOT) (test code = 1983666339) 26 U/L 13-40 eGFR Calculation (Non-) (test code = 6167643058) mL/min/1.73m2 eGFR Calculation () (test code = 5764985747) mL/min/1.73m2 VINEET (test code = VINEET) Association of Glomerular Filtration Rate (GFR) and Staging of Kidney Disease* + -+ + ---+| GFR (mL/min/1.73 m2) ?| With Kidney Damage ?| ?Without Kidney Damage+ -------+ ------+ ---------+| ?>90 ?| ?Stage one ?| ? Normal ?+ --+ -+ ----+| ?60-89 ?| ?Stage two ?| ? Decreased GFR ? + -+ + ---+| ?30-59 ?| ?Stage three ?| ? Stage three ? + -+ + ---+| ?15-29 ?| ?Stage four ? | ? Stage four ?+ --+ -+ ----+| ?<15 (or dialysis) ? ?| ?Stage five ? | ? Stage five ?+ --+ -+ ----+ *Each stage assumes the associated GFR level has been in effect for at least three months. ?Stages 1 to 5, with or without kidney disease, indicate chronic kidney disease. Notes: Determination of stages one and two (with eGFR >59mL/min/1.73 m2) requires estimation of kidney damage for at least three months as defined by structural or functional abnormalities of the kidney, manifested by either:Pathological abnormalities or Markers of kidney damage (including abnormalities in the composition of the blood or urine or abnormalities in imaging tests). [facility] WITH [id number] 04:15:00* Test Item Value Reference Range Interpretation Comme nts WBC (test code = 6690-2) See_Comment [Automated 48domain] The system which generated this result transmitted reference range: 4.30 - 11.10 10*3/?L. The reference range was not used to interpret this result as normal/abnormal. RBC (test code = 789-8) See_Comment [PR Slides] The system which generated this result transmitted reference range: 3.93 - 5.25 10*6/?L. The reference range was not used to interpret this result as normal/abnormal. HGB (test code = 718-7) 12.3 g/dL 11.6-15 HCT (test code = 4544-3) 36.4 % 35.7-45.2 MCV (test code = 787-2) 89.4 fL 80.6-95.5 MCH (test code = 785-6) 30.2 pg 25.9-32.8 MCHC (test code = 786-4) 33.8 g/dL 31.6-35.1 RDW-SD (test code = 01798-7) 40.0 fL 39-49.9 RDW-CV (test code = 788-0) 12.2 % 12-15.5 PLT (test code = 777-3) See_Comment [PR Slides] The system which generated this result transmitted reference range: 166 - 358 10*3/?L. The reference range was not used to interpret this result as normal/abnormal. MPV (test code = 71428-0) 11.0 fL 9.5-12.9 NRBC/100 WBC (test code = 3021581783) See_Comment [Automated me ssage] The system which generated this result transmitted reference range: 0.0 - 10.0 /100 WBCs. The reference range was not used to interpret this result as normal/abnormal. NRBC x10^3 (test code = 5417175555) <0.01 See_Comment [Automated messa ge] The system which generated this result transmitted reference range: 10*3/?L. The reference range was not used to interpret this result as normal/abnormal. GRAN MAT (NEUT) % (test code = 770-8) 43.4 % IMM GRAN % (test code = 1228584371) 0.60 % LYMPH % (test code = 736-9) 45.2 % MONO % (test code = 5905-5) 8.1 % EOS % (test code = 713-8) 2.1 % BASO % (test code = 706-2) 0.6 % GRAN MAT x10^3(ANC) (test code = 8317631142) 4.67 10*3/uL 1.88-7.09 IMM GRAN x10^3 (test code = 8621784273) 0.07 10*3/uL 0-0.06 H LYMPH x10^3 (test code = 731-0) 4.88 10*3/uL 1.32-3.29 H MONO x10^3 (test code = 742-7) 0.87 10*3/uL 0.33-0.92 EOS x10^3 (test code = 711-2) 0.23 10*3/uL 0.03-0.39 BASO x10^3 (test code = 704-7) 0.07 10*3/uL 0.01-0.07 Lab Interpretation (test code = 05716-7) [id number] 03:51:00* Test Item Value Reference Range Interpretation Comme nts POCT PREG (test code = 1605) negative On board controls acceptable with C Line (test code = 3574) present POCT PREG LOT # (test code = 3575) [id number] POCT PREG TEST DATE ( test code = 3575) Lab Interpretation (test cod e = 87428-5) [facility] [id number] 05:17:00* Test Item Value Reference Range Interpretation Comme nts TROPONIN I (test code = 9528408948) 0.002 ng/mL See_Comment [Automated message] The system which generated this result transmitted reference range: <=0.034. The reference range was not used to interpret this result as normal/abnormal. VINEET (test code = VINEET) Equal or Less than 0.034 ng/ml---Normal ?Note: Cardiac troponin begins to rise 3-4 hours after the onset of ischemia. Repeat in 4-6 hours if the sample was drawn within 3-4 hours of the onset of the symptom and found normal. Between 0.035 and 0.120 ng/mL--- Borderline. Questionable myocardial injury or necrosis ? ?Note: Serial measurement may be necessary to confirm or exclude the diagnosis of myocardial injury or necrosis; Clinical correlation (symptoms, EKGs, imaging studies, and others) required; Repeat in 4-6 hours if clinically indicated. ? Equal or Higher than 0.121 ng/mL---Abnormal. Myocardial Injury or Necrosis Likely ? Biotin has been reported to cause a negative bias, interpret results relative to patient's use of biotin. ? Lab Interpretation (test code = 79555-2) Normal [facility]. METABOLIC PANEL ([id number])2019-10-09 05:05:00* Test Item Value Reference Range Interpretation Comme nts NA (test code = 9230009143) 136 mmol/L 135-145 K (test code = 6214439485) 3.5 mmol/L 3.5-5 CL (test code = 7440381181) 105 mmol/L 98-108 CO2 TOTAL (test code = 4484550738) 22 mmol/L 23-31 L AGAP (test code = 7683159276) 2-16 BUN (test code = 7706683032) 13 mg/dL 7-23 GLUCOSE (test code = 7035435421) 120 mg/dL 70-110 H CREATININE (test code = 9646398046) 0.82 mg/dL 0.5-1.04 TOTAL BILI (test code = 2076572134) 0.3 mg/dL 0.1-1.1 CALCIUM (test code = 5275518539) 9.6 mg/dL 8.6-10.6 T PROTEIN (test code = 7989126829) 7.3 g/dL 6.3-8.2 ALBUMIN (test code = 8660007170) 4.3 g/dL 3.5-5 ALK PHOS (test code = 8461298486) 59 U/L 34-122 ALTv (test code = 1742-6) 15 U/L 5-35 AST(SGOT) (test code = 8839350194) 26 U/L 13-40 eGFR Calculation (Non-) (test code = 4628227059) mL/min/1.73m2 eGFR Calculation () (test code = 6937570359) mL/min/1.73m2 VINEET (test code = VINEET) Association of Glomerular Filtration Rate (GFR) and Staging of Kidney Disease* + --+ --+ ------+| GFR (mL/min/1.73 m2) ?| With Kidney Damage ?| ?Without Kidney Damage+ --------+ --------+ +| ?>90 ?| ?Stage one ?| ? Normal ?+ ---+ ---+ -------+| ?60-89 ?| ?Stage two ?| ? Decreased GFR ? + --+ --+ ------+| ?30-59 ?| ?Stage three ?| ? Stage three ? + --+ --+ ------+| ?15-29 ?| ?Stage four ? | ? Stage four ?+ ---+ ---+ -------+| ?<15 (or dialysis) ? ?| ?Stage five ? | ? Stage five ?+ ---+ ---+ -------+ *Each stage assumes the associated GFR level has been in effect for at least three months. ?Stages 1 to 5, with or without kidney disease, indicate chronic kidney disease. Notes: Determination of stages one and two (with eGFR >59mL/min/1.73 m2) requires estimation of kidney damage for at least three months as defined by structural or functional abnormalities of the kidney, manifested by either:Pathological abnormalities or Markers of kidney damage (including abnormalities in the composition of the blood or urine or abnormalities in imaging tests). Lab Interpretation (test code = 83276-3) [facility] Center[facility][id number] 05:00:00* Test Item Value Reference Range Interpretation Comments D-DIMER (test code = 8524301198) See_Comment [Automated message] The system which generated this result transmitted reference range: <0.41 ?g/mL (FEU). The reference range was not used to interpret this result as normal/abnormal. VINEET (test code = VINEET) This test may be used in conjunction with a clinical pretest probability (PTP) assessment model to exclude venous thromboembolism (VTE) in patients suspected of deep venous thrombosis (DVT) and pulmonary embolism (PE) A D-Dimer value less than 0.50 ?g/ml (FEU) has a negative predicative value of 96 to 100% (95% CI)and 97 to 100% (95% CI) as an aid in the diagnosis of deep vein thrombosis (DVT) and pulmonary embolism when there is low or moderate pretest probability of PE or DVT. D-Dimer values are expressed in initial fibrinogen equivalent units (FEU)" The assay results should be used with other information, including the clinical context, in forming a diagnosis. Lab Interpretation (test code = 16592-9) [facility] WITH [id number] 04:50:00* Test Item Value Reference Range Interpretation Comme nts WBC (test code = 6690-2) See_Comment [Automated 48domain] The system which generated this result transmitted reference range: 4.30 - 11.10 10*3/?L. The reference range was not used to interpret this result as normal/abnormal. RBC (test code = 789-8) See_Comment [Automated 48domain] The system which generated this result transmitted reference range: 3.93 - 5.25 10*6/?L. The reference range was not used to interpret this result as normal/abnormal. HGB (test code = 718-7) 12.7 g/dL 11.6-15 HCT (test code = 4544-3) 37.7 % 35.7-45.2 MCV (test code = 787-2) 88.5 fL 80.6-95.5 MCH (test code = 785-6) 29.8 pg 25.9-32.8 MCHC (test code = 786-4) 33.7 g/dL 31.6-35.1 RDW-SD (test code = 52873-1) 40.3 fL 39-49.9 RDW-CV (test code = 788-0) 12.5 % 12-15.5 PLT (test code = 777-3) See_Comment [Automated messa ge] The system which generated this result transmitted reference range: 166 - 358 10*3/?L. The reference range was not used to interpret this result as normal/abnormal. MPV (test code = 42106-6) 10.3 fL 9.5-12.9 NRBC/100 WBC (test code = 0582670511) See_Comment [Automated [employer] ssage] The system which generated this result transmitted reference range: 0.0 - 10.0 /100 WBCs. The reference range was not used to interpret this result as normal/abnormal. NRBC x10^3 (test code = 9821140297) <0.01 See_Comment [Automated messa ge] The system which generated this result transmitted reference range: 10*3/?L. The reference range was not used to interpret this result as normal/abnormal. GRAN MAT (NEUT) % (test code = 770-8) 51.7 % IMM GRAN % (test code = 0420638559) 0.30 % LYMPH % (test code = 736-9) 37.4 % MONO % (test code = 5905-5) 8.1 % EOS % (test code = 713-8) 1.9 % BASO % (test code = 706-2) 0.6 % GRAN MAT x10^3(ANC) (test code = 0045073565) 4.83 10*3/uL 1.88-7.09 IMM GRAN x10^3 (test code = 8344784603) 0.03 10*3/uL 0-0.06 LYMPH x10^3 (test code = 731-0) 3.50 10*3/uL 1.32-3.29 H MONO x10^3 (test code = 742-7) 0.76 10*3/uL 0.33-0.92 EOS x10^3 (test code = 711-2) 0.18 10*3/uL 0.03-0.39 BASO x10^3 (test code = 704-7) 0.06 10*3/uL 0.01-0.07 Lab Interpretation (test code = 77289-0) Abnormal [facility]
--- NOTE | 2024-08-08 20:01 | RAD REPORT ---
EXAM: CT Ct Stroke Brain Wo Cont HISTORY: STROKE ALERT. Right sided facial numbness. Altered mental status COMPARISON: None TECHNIQUE: Multiple contiguous axial images were obtained for a CT of the brain without contrast. Sag ittal and coronal reformats were performed. One or more of the following dose reduction techniques were used: Automated exposure control, adjus tment of the mA and kV according to patient size, and iterative reconstruction. Unless otherwise specified, incidental findings do not require dedicated imaging follow-up. FINDINGS: No evidence of hydrocephalus, intracranial hemorrhage, or extra-axial fluid collection. The brain is normal in morphology. The calvarium is intact. The visualized paranasal sinuses and mastoid air cells are essentially clear . IMPRESSION: No evidence of acute intracranial abnormality. THIS REPORT CONTAINS FINDINGS THAT MAY BE CRITICAL TO PATIENT CARE. The findings were verbally commun icated via telephone to Umang Edwards on 08/08/2024 7:58 PM.
[2024-08-08] MEDS ORDERED: TENECTEPLASE 50 MG/10 ML VIAL IV ONE (20:02)
[2024-08-08] MEDS ORDERED: LABETALOL 20 MG/4ML SYRINGE IV ONE (20:08)
[2024-08-08] MEDS ORDERED: Nicardipine/NS 25 MG/250 ML KIT IV ONE (20:09)
[2024-08-08 20:13] LABS: Absolute Basophils 0.1 K/uL (0-0.5); Absolute Eosinophils 0.2 K/uL (0-0.5); Absolute Monocytes 0.8 K/uL (0.1-1.3); Absolute Neutrophil 5.3 K/uL (1.8-8.0); Eosinophils % 1.8 % (0-4.4); Hematocrit 35.1 % (36.0-45.0); Hemoglobin 11.8 g/dL (12.0-15.0); Lymphocytes % 38.1 % (15.3-44.8); MCH 25.7 pg (27.0-35.0); MCHC 33.6 g/dL (32.0-36.0); MCV 76.5 fL (80-100); MPV 7.6 fL (7.6-11.3); Monocytes % 8.1 % (3.3-12.3); Nucleated Red Blood Cells % 0.1 % (0-0); Platelets 444 thou/uL (152-406); RBC Red Blood Cell Count 4.58 M/uL (3.86-4.86); Red Cell Distribution Width 15.5 % (12.1-15.2)
[2024-08-08 20:17] LABS: PT Prothrombin Time 10.3 SECONDS (9.4-12.5); PTT, Activated Partial Thromb 33.5 SECONDS (24.3-36.9); Protime INR 0.98
[2024-08-08 20:27] LABS: ALT/SGPT 26 U/L (13-56); AST/SGOT 18 U/L (15-37); Albumin 3.8 g/dL (3.4-5.0); Albumin/Globulin Ratio 0.9 (1.1-1.8); Alkaline Phosphatase 77 U/L (45-117); Anion Gap 11.9 mEq/L (5.0-15.0); BUN Blood Urea Nitrogen 10 mg/dL (7-18); Bicarbonate 23 mEq/L (21-32); Bilirubin Total 0.3 mg/dL (0.2-1.0); Globulin 4.1 g/dL (2.3-3.5); Glomerular Filtration Rate 75 ml/min (=/>90); Glucose Level 98 mg/dL (74-106); Magnesium 2.3 mg/dL (1.6-2.4); Potassium 3.9 mEq/L (3.5-5.1); Protein, Total 7.9 g/dL (6.4-8.2); Sodium Level 136 mEq/L (136-145); Troponin High Sensitivity 3.4 pg/mL (<58.9)
[2024-08-08 20:30] LABS: Bilirubin Direct < 0.2 mg/dL (0-0.2); Bilirubin Indirect, Calculated 0.1 mg/dL (0.2-0.8)
--- NOTE | 2024-08-08 20:56 | ER ---
Nurse's Notes [facility] Name: Shoshana Elena Age: 43 yrs Sex: Female : 1980 Arrival Date: 08/08/2024 Time: 19:47 Bed 15 Private MD: Diagnosis: Cerebral infarction, unspecified-ACUTE Presentation: 08/08 19:46 An acute neurological deficit is present. The charge nurse has been notified. Initial me1 Sepsis Screen: Does the patient meet any 2 criteria? No. Patient's initial sepsis screen is negative. Does the patient have a suspected source of infection? No. Patient's initial sepsis screen is negative. 19:54 Chief complaint: EMS states: toned out to urgent care for right sided weakness, CP, me1 syncopal episodes, blurred vision, R facial numbness, R sided weakness to arm and leg, difficulty speaking. Risk Assessment: Do you want to hurt yourself or someone else? Patient reports no desire to harm self or others. Onset of symptoms was August 08, 2024 at 18:30. 19:54 Method Of Arrival: EMS: [facility] ia1 19:54 Acuity: TABITHA 2 me1 22:58 Coronavirus screen: At this time, the client does not indicate any symptoms associated me1 with coronavirus-19. Ebola Screen: No symptoms or risks identified at this time. Triage Assessment: 19:58 The onset of the patients symptoms was less than three hours ago. General: Appears me1 uncomfortable, well groomed, well developed, well nourished, Behavior is calm, cooperative, appropriate for age. 20:00 The onset of the patients symptoms was August 08, 2024 at 18:30. Pain: Denies pain. me1 EENT: No signs and/or symptoms were reported regarding the EENT system. Neuro: Level of Consciousness is awake, alert, obeys commands, Oriented to person, place, time, situation, Appropriate for age Pediatric Lpn are weak on right Weakness in right arm(s) leg(s) Gait is unsteady, Speech with expressive aphasia noted, Facial symmetry appears normal, Pupils are PERRLA, Numbness in right cheek Reports blurred vision dizziness, numbness paresthesias a syncopal episode weakness in right arm and right leg. Cardiovascular: Patient's skin is warm and dry. Cardiovascular: Reports chest pain. Cardiovascular: Respiratory: Airway is patent. Respiratory: Airway Respiratory effort is even, unlabored, Respiratory pattern is regular, symmetrical. GI: No signs and/or symptoms were reported involving the gastrointestinal system. : No signs and/or symptoms were reported regarding the genitourinary system. Derm: Skin is intact, is healthy with good turgor, Skin is pink, warm \T\ dry. Musculoskeletal: Reports weakness in right arm and right leg. 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 - Infectious Disease History:: Denies. - Social history:: Smoking status: unknown. Screenin:58 [facility] ED Fall Risk Assessment (Adult) History of falling in the last 3 months, me1 including since admission No falls in past 3 months (0 pts) Confusion or Disorientation No (0 pts) Intoxicated or Sedated No (0 pts) Impaired Gait Yes (1 pt) Mobility Assist Device Used Yes (1 pt) Altered Elimination No (0 pt) Score/Fall Risk Level 3 or more points = High Risk Maintained a safe environment, Provided non-skid footwear, Hourly rounding (assess needs \T\ fall precautionary measures) done. Abuse screen: Denies threats or abuse. Nutritional screening: No deficits noted. Tuberculosis screening: No symptoms or risk factors identified. 21:30 [place] [facility] Protocol Exclusion Criteria: Unable to remain alert for testing: No NPO me1 for medical/surgical reason by provider order No Brief Cognitive Screen What is your name? Normal, Where are you right now? Normal, What year is it? Normal. Oral Mechanism Examination Facial Symmetry: Normal, Motion: Normal, Lip Closure: Normal, 3 oz Water Swallow Challenge: Pt able to drink all water without stopping, coughing, choking or throat clearing: Yes Result: PASS Notified: Davin Irene MD. Assessment: 19:58 VAN Scoring: Arm Drift: Severe drift Visual Disturbance: Field Cut: Abnormal visual me1 reid noted. Provider notified of +VAN scoring. Aphasia: Expressive aphasia noted. Provider notified of +VAN scoring. Neglect: No neglect noted. [place] [facility] Protocol Exclusion Criteria: Unable to remain alert for testing: No NPO for medical/surgical reason by provider order No Brief Cognitive Screen What is your name? Normal, Where are you right now? Normal, What year is it? Normal. Oral Mechanism Examination Facial Symmetry: Normal, Motion: Normal, Lip Closure: Normal, Oral Mechanism Result: Normal. 3 oz Water Swallow Challenge: Pt able to drink all water without stopping, coughing, choking or throat clearing: Yes Result: PASS Notified: Davin Irene MD. TNKase (Tenecteplase) Screening: Indications: Definite evidence of stroke, ischemic, embolic, or hypertensive: Yes. Treatment will start within 4.5 hours onset of symptoms: Yes. No evidence of intracranial hemorrhage or CT of head and no evidence of peripheral hemorrhage or recent CVA: Yes. Contraindications:. General: See triage assessment.. 22:39 Reassessment: Report called to JASON Mccarthy at [facility]. me1 Vital Signs: 19:59 Weight 79.38 kg; me1 20:15 BP 145 / 93; Pulse 82; Resp 17; Pulse Ox 98% ; me1 20:42 BP 140 / 95; Pulse 95; Resp 17; Pulse Ox 96% ; me1 20:57 BP 129 / 96; Pulse 90; Resp 15; Pulse Ox 96% ; me1 21:12 BP 130 / 83; Pulse 98; Resp 15; Pulse Ox 97% ; me1 21:27 BP 127 / 86; Pulse 89; Resp 18 S; Temp 98.1; Pulse Ox 98% on R/A; ha1 21:42 BP 133 / 85; Pulse 89; Resp 15; Pulse Ox 96% ; me1 21:57 BP 118 / 92; Pulse 84; Resp 15; Pulse Ox 97% ; me1 22:12 BP 118 / 84; Pulse 82; Resp 16; Pulse Ox 97% ; me1 22:27 BP 123 / 83; Pulse 89; Resp 14; Pulse Ox 97% ; me1 22:57 BP 120 / 95; Pulse 92; Resp 14; Pulse Ox 97% ; me1 NIH Stroke Scale Scores: 19:58 NIHSS Score: 12 me1 21:13 NIHSS Score: 6 mitchel ED Course: 19:50 Patient arrived in ED. rv1 19:50 Umang Edwards MD is Attending Physician. rt 19:53 Staci Nguyen, RN is Primary Nurse. me1 19:56 CT Stroke Brain w/o Contrast In Process Unspecified. EDMS 19:56 Triage completed. me1 19:58 No provider procedures requiring assistance completed. me1 19:58 Patient has correct armband on for positive identification. Bed in low position. Call ia1 light in reach. Side rails up X2. Provided Education on: POC. Verbalized understanding.. Client placed on continuous cardiac and pulse oximetry monitoring. NIBP monitoring applied. supervisor microwave on. Pulse ox on. NIBP on. 20:00 Inserted saline lock: 18 gauge in left antecubital area, using aseptic technique. Blood jb4 collected. Maintain EMS IV. Dressing intact. Site clean \T\ dry. Gauge \T\ site: 20g in LFA. Flushed with 10 mL NS. 20:00 Arm band placed on Patient placed in an exam room. me1 20:03 Ptt, Activated Sent. jb4 20:03 Protime (+inr) Sent. jb4 20:03 Magnesium Sent. jb4 20:03 High Sensitivity Troponin Sent. jb4 20:03 Hepatic Function Sent. jb4 20:03 CBC with Diff Sent. jb4 20:03 Basic Metabolic Panel Sent. jb4 20:04 EKG done, by ED staff. rk3 20:15 Stroke CXR 1 View In Process Unspecified. EDMS 20:52 Attending Physician role handed off by Umang Edwards MD mitchel 20:52 Davin Irene MD is Attending Physician. mitchel 21:22 CT Head Angio In Process Unspecified. EDMS 21:22 CT Neck Angio In Process Unspecified. EDMS 23:42 Patient transferred, IV remains in place. me1 Administered Medications: 20:12 Drug: Labetalol IV 10 mg IV at calculated rate once Route: IV; Rate: calculated rate; ia1 Site: left antecubital; 21:54 Follow up: IV Status: Completed infusion me1 21:54 Follow up: Response: No adverse reaction me1 20:14 Drug: niCARdipine IV 5 mg/hr IV at calculated rate See Administration Instructions; me1 (Standard concentration 25 mg / 250 mL NS); Recommended max rate 15 mg/hr; Titrate 2.5 mg/hr as often as every 15 minutes to achieve goal (see titration policy); Goal parameter SBP less than 160 mmHg Route: IV; Rate: calculated rate; Site: left antecubital; 21:25 Follow up: Rate change 2.5 mg/hr me1 22:26 Follow up: Response: No adverse reaction; Blood pressure is lowered; IV Status: Order me1 to discontinue infusion; Order to discontinue infusion, verbal from Dr Irene 20:27 Drug: TNK FOR STROKE - Tenecteplase IV (Administer 10 ml NS flush BEFORE and me1 AFTER tenecteplase) 20 mg IV at per protocol once; 0.25mg/kg, MAX DOSE 25 mg, IVP over 5 seconds {Co-Signature: haEmanuel (Sue Lo RN).} {Note: calculated on weight based .} Route: IV; Rate: per protocol; Site: left forearm; 21:54 Follow up: Response: No adverse reaction; IV Status: Completed infusion me1 21:25 Drug: diphenhydrAMINE IVP 25 mg IVP once Route: IVP; Site: left forearm; me1 21:54 Follow up: Response: No adverse reaction me1 21:25 Drug: Famotidine IVP 20 mg IVP once; dilute with 10 mL 0.9% NaCl; give over 2 minutes me1 Route: IVP; Site: left forearm; 21:55 Follow up: Response: No adverse reaction me1 21:25 Drug: MethylPrednisoLONE IVP 125 mg IVP once Route: IVP; Site: left forearm; me1 21:55 Follow up: Response: No adverse reaction me1 23:25 Drug: NS 0.9% IV 500 ml 500 ml IV at 1 bolus once; to be given as a bolus over 30 me1 minutes Volume: 500 ml; Route: IV; Rate: 1 bolus; Site: left antecubital; 23:43 Follow up: IV Status: Infusion continued upon transfer me1 23:25 Drug: foLIC Acid IVPB 1 mg IVPB once Route: IVPB; Site: left antecubital; me1 23:43 Follow up: Response: No adverse reaction; IV Status: Completed infusion [facility] Medication: 19:58 VIS not applicable for this client. [facility] Point of Care Testing: Blood Glucose: 20:32 Blood Glucose: 104 mg/dL; [facility] Ranges: Outcome: 20:56 ER care complete, transfer ordered by MD. grullon 23:42 Transferred by ground EMS to [facility], Note: Report given to reyna Mccarthy RN 23:42 Condition: stable 23:42 Instructed on the need for transfer, 23:42 Patient left the ED. [facility] NIH Stroke Scale - NIH Stroke Score Date: 08/08/2024 Time: 19:58 Total Score = 12 10. Dysarthria (speech clarity - read or repeat words) - 1(Mild to Moderate) 11. Extinction and Inattention (visual/tactile/auditory/spatial/personal) - 0(No abnormality) 1a. Level of Consciousness (LOC) - 0(Alert) 1b. Level of Consciousness (LOC) (Month \T\ Age) - 0(Both) 1c. LOC Commands (Open \T\ Closes Eyes/Auditor Internal) - 0(Both) 2. Best Gaze (Lateral Gaze Paresis) - 0(Normal) 3. Visual Field Loss - 1(Partial hemianopia) 4. Facial Palsy - 1(Minor Paralysis) 5a. Left Arm: Motor (10-second hold) - 0(No drift) 5b. Right Arm: Motor (10-second hold) - 3(No effort against gravity) 6a. Left Leg: Motor (5-second hold - always test supine) - 0(No drift) 6b. Right Leg: Motor (5-second hold - always test supine) - 2(Drift, some effort against gravity) 7. Limb Ataxia (finger/nose \T\ heel/franklin - test with eyes open) - 2(Present in two limbs) 8. Sensory Loss (pinprick arms/legs/face) - 1(Mild to moderate loss) 9. Best Language: Aphasia (description/naming/reading) - 1(Mild to moderate aphasia) Initials: [facility] NIH Stroke Scale - NIH Stroke Score Date: 08/08/2024 Time: 21:13 Total Score = 6 10. Dysarthria (speech clarity - read or repeat words) - 1(Mild to Moderate) 11. Extinction and Inattention (visual/tactile/auditory/spatial/personal) - 0(No abnormality) 1a. Level of Consciousness (LOC) - 0(Alert) 1b. Level of Consciousness (LOC) (Month \T\ Age) - 0(Both) 1c. LOC Commands (Open \T\ Closes Eyes/Auditor Internal) - 0(Both) 2. Best Gaze (Lateral Gaze Paresis) - 0(Normal) 3. Visual Field Loss - 0(No visual loss) 4. Facial Palsy - 1(Minor Paralysis) 5a. Left Arm: Motor (10-second hold) - 0(No drift) 5b. Right Arm: Motor (10-second hold) - 1(Drift) 6a. Left Leg: Motor (5-second hold - always test supine) - 0(No drift) 6b. Right Leg: Motor (5-second hold - always test supine) - 1(Drift) 7. Limb Ataxia (finger/nose \T\ heel/franklin - test with eyes open) - 2(Present in two limbs) 8. Sensory Loss (pinprick arms/legs/face) - 0(Normal) 9. Best Language: Aphasia (description/naming/reading) - 0(No aphasia) Initials: mitchel Signatures: Dispatcher [employer] EDMS Davin Irene MD MD cha Bryson, James, RN RN jb4 Sue Lo RN RN ha1 Umang Edwards MD MD rt Villegas, Rebecca rv1 Staci Nguyen RN RN me1 Ana Beck rk3 Sue Lo RN ha1 Corrections: (The following items were deleted from the chart) 20:05 19:58 General: Appears uncomfortable, well groomed, well developed, well me1 nourished, Behavior is calm, cooperative, appropriate for age, Reports me1
--- NOTE | 2024-08-08 20:56 | EDPHYS ---
Physician Documentation [facility] Name: Shoshana Elena Age: 43 yrs Sex: Female : 1980 Arrival Date: 08/08/2024 Time: 19:47 Bed 15 Private MD: ED Physician Davin Irene HPI: 08/08 20:18 This 43 yrs old Female presents to ER via EMS with complaints of Weakness. rt 20:18 Patient presents to the ED with strokelike symptoms. A little over 1 hour prior to rt arrival was the patient's last seen normal. She had right sided numbness, weakness, difficulty with speech as with associated chest pain. She was seen at urgent care, sent here for further evaluation. States that the chest pain does not radiate to the back, is tight in nature. Denies other acute complaints at this time, symptoms are severe in severity, no other aggravating or alleviating factors.. 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 - Infectious Disease History:: Denies. - Social history:: Smoking status: unknown. ROS: 20:18 Constitutional: Negative for fever, chills, and weight loss, Respiratory: Negative for rt shortness of breath, cough, wheezing, and pleuritic chest pain, Abdomen/GI: Negative for abdominal pain, nausea, vomiting, diarrhea, and constipation, MS/Extremity: Negative for injury and deformity, Skin: Negative for injury, rash, and discoloration, 20:18 Cardiovascular: Positive for chest pain, Negative for edema, 20:18 Neuro: Positive for numbness, speech changes, weakness, Exam: 20:18 Constitutional: This is a well developed, well nourished patient who is awake, alert, rt and in no acute distress. Chest/axilla: Normal chest wall appearance and motion. Nontender with no deformity. No lesions are appreciated. Cardiovascular: Regular rate and rhythm with a normal S1 and S2. No gallops, murmurs, or rubs. Normal PMI, no JVD. No pulse deficits. Respiratory: Lungs have equal breath sounds bilaterally, clear to auscultation and percussion. No rales, rhonchi or wheezes noted. No increased work of breathing, no retractions or nasal flaring. Abdomen/GI: Soft, non-tender, with normal bowel sounds. No distension or tympany. No guarding or rebound. No evidence of tenderness throughout. Skin: Warm, dry with normal turgor. Normal color with no rashes, no lesions, and no evidence of cellulitis. 20:18 ECG was reviewed by the Attending Physician. 20:18 Neuro: Speech is nonfluent, dysarthria noted. Sensory deficits on the right side of the face, mild right-sided facial droop, no other cranial nerve deficits, visual field deficits. There are sensory deficits to the right arm, right leg. Drift noted in the right upper and right lower extremities. Strength and sensation are intact in left upper and left lower extremities., Vital Signs: 19:59 Weight 79.38 kg; me1 20:15 BP 145 / 93; Pulse 82; Resp 17; Pulse Ox 98% ; me1 20:42 BP 140 / 95; Pulse 95; Resp 17; Pulse Ox 96% ; me1 20:57 BP 129 / 96; Pulse 90; Resp 15; Pulse Ox 96% ; me1 21:12 BP 130 / 83; Pulse 98; Resp 15; Pulse Ox 97% ; me1 21:27 BP 127 / 86; Pulse 89; Resp 18 S; Temp 98.1; Pulse Ox 98% on R/A; ha1 21:42 BP 133 / 85; Pulse 89; Resp 15; Pulse Ox 96% ; me1 21:57 BP 118 / 92; Pulse 84; Resp 15; Pulse Ox 97% ; me1 22:12 BP 118 / 84; Pulse 82; Resp 16; Pulse Ox 97% ; me1 22:27 BP 123 / 83; Pulse 89; Resp 14; Pulse Ox 97% ; me1 22:57 BP 120 / 95; Pulse 92; Resp 14; Pulse Ox 97% ; me1 NIH Stroke Scale Scores: 19:58 NIHSS Score: 12 me1 21:13 NIHSS Score: 6 mitchel MDM: 19:50 Medical Screening Exam initiated rt 20:40 Data reviewed: vital signs, nurses notes. I considered the following discharge rt prescriptions or medication management in the emergency department Medications were administered in the Emergency Department. See MAR. Independent interpretation of the following test(s) in the Emergency Department X-Ray: My interpretation is No widened mediastinum seen on interpretation of x-ray images. Discussion of test interpretation with radiology: I had a discussion with radiology regarding a test interpretation. No acute findings on noncontrasted study. Care significantly affected by the following chronic conditions: Lupus. Counseling: I had a detailed discussion with the patient and/or guardian regarding the historical points, exam findings, and any diagnostic results supporting the discharge/admit diagnosis, lab results, radiology results. ED course: Consideration was given to aortic dissection as patient has chest pain. Her description of the pain does not seem to be consistent with an aortic dissection as it is pressure-like and does not radiate to the back. I did review the x-ray images and see no widened mediastinum. I did discuss that aortic dissection is less likely, not completely ruled out with the patient and her father. I believe that the risks at this point are low that the patient would have a dissection and believe that the patient would benefit from rapid administration of TNKase and to save the contrast bolus for angiograms of the head and neck.. 08/08 19:51 Order name: Basic Metabolic Panel; Complete Time: 20:32 rt 08/08 19:51 Order name: CBC with Diff; Complete Time: 20:32 rt 08/08 19:51 Order name: Hepatic Function; Complete Time: 20:32 rt 08/08 19:51 Order name: High Sensitivity Troponin; Complete Time: 20:32 rt 08/08 19:51 Order name: Magnesium; Complete Time: 20:32 rt 08/08 19:51 Order name: Protime (+inr); Complete Time: 20:32 rt 08/08 19:51 Order name: Ptt, Activated; Complete Time: 20:32 rt 08/08 20:11 Order name: Glucose, Ancillary Testing; Complete Time: 20:32 EDMS 08/08 19:51 Order name: CT Head Angio; Complete Time: 22:18 rt 08/08 19:51 Order name: CT Neck Angio; Complete Time: 22:18 rt 08/08 19:51 Order name: CT Stroke Brain w/o Contrast; Complete Time: 20:32 rt 08/08 19:51 Order name: Stroke CXR 1 View; Complete Time: 21:28 rt 08/08 19:51 Order name: Accucheck; Complete Time: 20:02 rt 08/08 19:51 Order name: Cardiac monitoring; Complete Time: 20:12 rt 08/08 19:51 Order name: EKG - Nurse/Tech; Complete Time: 20:04 rt 08/08 19:51 Order name: IV Saline Lock; Complete Time: 20:02 rt 08/08 19:51 Order name: Labs collected and sent; Complete Time: 20:03 rt 08/08 19:51 Order name: NPO; Complete Time: 20:48 rt 08/08 19:51 Order name: O2 Per Protocol; Complete Time: 20:03 rt 08/08 19:51 Order name: O2 Sat Monitoring; Complete Time: 20:03 rt 08/08 19:51 Order name: Stroke Swallow Screen; Complete Time: 23:17 rt EC:18 Rate is 92 beats/min. Rhythm is regular, Normal Sinus Rhythm with No ectopy. QRS Logan rt is Normal. TN interval is normal. QRS interval is normal. QT interval is normal. No Q waves. Clinical impression: NSR w/ Non-specific ST/T Changes. Administered Medications: 20:12 Drug: Labetalol IV 10 mg IV at calculated rate once Route: IV; Rate: calculated rate; me1 Site: left antecubital; 21:54 Follow up: IV Status: Completed infusion me1 21:54 Follow up: Response: No adverse reaction me1 20:14 Drug: niCARdipine IV 5 mg/hr IV at calculated rate See Administration Instructions; me1 (Standard concentration 25 mg / 250 mL NS); Recommended max rate 15 mg/hr; Titrate 2.5 mg/hr as often as every 15 minutes to achieve goal (see titration policy); Goal parameter SBP less than 160 mmHg Route: IV; Rate: calculated rate; Site: left antecubital; 21:25 Follow up: Rate change 2.5 mg/hr me1 22:26 Follow up: Response: No adverse reaction; Blood pressure is lowered; IV Status: Order me1 to discontinue infusion; Order to discontinue infusion, verbal from Dr Irene 20:27 Drug: TNK FOR STROKE - Tenecteplase IV (Administer 10 ml NS flush BEFORE and me1 AFTER tenecteplase) 20 mg IV at per protocol once; 0.25mg/kg, MAX DOSE 25 mg, IVP over 5 seconds {Co-Signature: ha1 (Sue Lo RN).} {Note: calculated on weight based .} Route: IV; Rate: per protocol; Site: left forearm; 21:54 Follow up: Response: No adverse reaction; IV Status: Completed infusion me1 21:25 Drug: diphenhydrAMINE IVP 25 mg IVP once Route: IVP; Site: left forearm; me1 21:54 Follow up: Response: No adverse reaction me1 21:25 Drug: Famotidine IVP 20 mg IVP once; dilute with 10 mL 0.9% NaCl; give over 2 minutes me1 Route: IVP; Site: left forearm; 21:55 Follow up: Response: No adverse reaction me1 21:25 Drug: MethylPrednisoLONE IVP 125 mg IVP once Route: IVP; Site: left forearm; me1 21:55 Follow up: Response: No adverse reaction me1 23:25 Drug: NS 0.9% IV 500 ml 500 ml IV at 1 bolus once; to be given as a bolus over 30 me1 minutes Volume: 500 ml; Route: IV; Rate: 1 bolus; Site: left antecubital; 23:43 Follow up: IV Status: Infusion continued upon transfer me1 23:25 Drug: foLIC Acid IVPB 1 mg IVPB once Route: IVPB; Site: left antecubital; me1 23:43 Follow up: Response: No adverse reaction; IV Status: Completed infusion me1 Point of Care Testing: Blood Glucose: 20:32 Blood Glucose: 104 mg/dL; me1 Ranges: Critical Glucose Levels:Adult <50 mg/dl or >400 mg/dl <40 mg/dl or >180 mg/dl Disposition Summary: 08/08/24 20:56 Transfer Ordered Notes: Transfer Location: [facility] mitchel Reason: Higher level of care mitchel Condition: Stable mitchel Problem: new mitchel Symptoms: have improved mitchel Accepting Physician: TO [facility] ER / NEURO(08/08/24 23:42) me1 Diagnosis - Cerebral infarction, unspecified - ACUTE mitchel Forms: - Medication Reconciliation Form mitchel - SBAR form mitchel Critical care time excluding procedures: 20:43 Critical care time: Bedside Care: 30 minutes, Consultation: 5 minutes, Family rt Intervention: 5 minutes. Total time: 40 minutes NIH Stroke Scale - NIH Stroke Score Date: 08/08/2024 Time: 19:58 Total Score = 12 10. Dysarthria (speech clarity - read or repeat words) - 1(Mild to Moderate) 11. Extinction and Inattention (visual/tactile/auditory/spatial/personal) - 0(No abnormality) 1a. Level of Consciousness (LOC) - 0(Alert) 1b. Level of Consciousness (LOC) (Month \T\ Age) - 0(Both) 1c. LOC Commands (Open \T\ Closes Eyes/Otolaryngologist) - 0(Both) 2. Best Gaze (Lateral Gaze Paresis) - 0(Normal) 3. Visual Field Loss - 1(Partial hemianopia) 4. Facial Palsy - 1(Minor Paralysis) 5a. Left Arm: Motor (10-second hold) - 0(No drift) 5b. Right Arm: Motor (10-second hold) - 3(No effort against gravity) 6a. Left Leg: Motor (5-second hold - always test supine) - 0(No drift) 6b. Right Leg: Motor (5-second hold - always test supine) - 2(Drift, some effort against gravity) 7. Limb Ataxia (finger/nose \T\ heel/franklin - test with eyes open) - 2(Present in two limbs) 8. Sensory Loss (pinprick arms/legs/face) - 1(Mild to moderate loss) 9. Best Language: Aphasia (description/naming/reading) - 1(Mild to moderate aphasia) Initials: me1 NIH Stroke Scale - NIH Stroke Score Date: 08/08/2024 Time: 21:13 Total Score = 6 10. Dysarthria (speech clarity - read or repeat words) - 1(Mild to Moderate) 11. Extinction and Inattention (visual/tactile/auditory/spatial/personal) - 0(No abnormality) 1a. Level of Consciousness (LOC) - 0(Alert) 1b. Level of Consciousness (LOC) (Month \T\ Age) - 0(Both) 1c. LOC Commands (Open \T\ Closes Eyes/Otolaryngologist) - 0(Both) 2. Best Gaze (Lateral Gaze Paresis) - 0(Normal) 3. Visual Field Loss - 0(No visual loss) 4. Facial Palsy - 1(Minor Paralysis) 5a. Left Arm: Motor (10-second hold) - 0(No drift) 5b. Right Arm: Motor (10-second hold) - 1(Drift) 6a. Left Leg: Motor (5-second hold - always test supine) - 0(No drift) 6b. Right Leg: Motor (5-second hold - always test supine) - 1(Drift) 7. Limb Ataxia (finger/nose \T\ heel/franklin - test with eyes open) - 2(Present in two limbs) 8. Sensory Loss (pinprick arms/legs/face) - 0(Normal) 9. Best Language: Aphasia (description/naming/reading) - 0(No aphasia) Initials: mitchel Signatures: Dispatcher [employer] EDMS Davin Irene MD MD cha [place], Ryan, MD MD rt Eddleman, Michelle, RN RN me1 Sue Lo RN ha1 Corrections: (The following items were deleted from the chart) 19:52 19:51 Neck Angio+CT.RAD.BRZ ordered. EDMS EDMS 19:52 19:52 CT-STROKE BRAIN W/O CONTRAST+CT.RAD.BRZ ordered. EDMS EDMS 19:52 19:52 Chest Single View+RAD.RAD.BRZ ordered. EDMS EDMS 23:42 20:56 TO [facility] ER / NEURO mitchel me1
--- NOTE | 2024-08-08 21:06 | RAD REPORT ---
EXAMINATION: ONE VIEW CHEST XR CLINICAL INDICATION: Female, 43 years old.,cva TECHNIQUE: Frontal chest projection is submitted. Examination is limited by patient positioning and t echnique. COMPARISON: 10/16/2018 FINDINGS: The lungs are grossly clear although suboptimal inspiratory effort somewhat limits evaluation. No pn eumothorax or sizable effusion. The heart is normal in size. Mediastinal contours are unremarkable. IMPRESSION: No acute intrathoracic abnormalities.
[2024-08-08] MEDS ORDERED: METHYLPREDNISOLONE 125 MG INJ ONE (21:13)
[2024-08-08] MEDS ORDERED: FAMOTIDINE 20 MG/2 ML VIAL IV ONE (21:13)
[2024-08-08] MEDS ORDERED: DIPHENHYDRAMINE 50 MG/ML VIAL ONE (21:13)
--- NOTE | 2024-08-08 21:28 | RAD REPORT ---
EXAMINATION: CT Neck Angio CLINICAL INDICATION: Female, 43 years old. [facility] cva Bed Name: 15 TECHNIQUE: Axial CT images were obtained from the aortic arch to the skull base after intravenous con trast utilizing angiographic protocol. Multiplanar reformats, as well as 3D post-processing (maximum intensity projection images, volume rendered images and/or shaded surface rendered images) w ere generated and reviewed. One or more of the following dose reduction techniques were used: Automated exposure control, adjustment of the mA and/or kV according to patient size, and/or iterativ e reconstruction. Unless otherwise specified, incidental findings do not require dedicated imaging follow-up. COMPARISON: Noncontrast head CT of the same day FINDINGS: AORTA: The imaged aortic arch is normal. Normal three-vessel configuration of the arch. CCA: No artifact The common carotid arteries are patent and normal in caliber. ICA/ECA: Bilateral internal and external carotid arteries are patent. There is no significant interna l carotid artery stenosis. VERTEBRAL: The cervical vertebral arteries are patent to the skull base although with mild proximal t ortuosity. Vertebral arteries are codominant. SOFT TISSUE: No significant neck soft tissue abnormalities. The visualized lung apices are clear. 3D images confirm these findings. IMPRESSION: No significant flow abnormality of the neck vessels is identified. NASCET criteria used to quantify ICA stenosis, with the following grading scheme: Mild 0-49% stenosis Moderate 50-69% stenosis Severe 70-99% stenosis Reference: [place] Symptomatic Carotid Endarterectomy Trial Collaborators; Sanjuana MARTINEZ, Susan DW, Aubrie RB, et al. Beneficial effect of carotid endarterectomy in symptomatic patients with high-grade carotid stenosis. N Engl J Med. 1990 15;325(7):445-53.
--- NOTE | 2024-08-08 21:33 | RAD REPORT ---
EXAMINATION: CTA HEAD CLINICAL INDICATION: Female, 43 years old. Cva TECHNIQUE: Axial CT images were obtained through the head after intravenous contrast utilizing angiog raphic protocol with 3D post-processing (maximum intensity projection images, volume rendered images and/or shaded surface rendered images). One or more of the following dose reduction technique s were used: Automated exposure control, adjustment of the mA and/or kV according to patient size, and/or iterative reconstruction. Unless otherwise specified, incidental findings do not require dedic ated imaging follow-up. COMPARISON: No prior exam. FINDINGS: ICA: The petrous, cavernous, and supraclinoid segments of the bilateral internal carotid arteries are normal. STEVIE: Anterior cerebral arteries are normal bilaterally. The anterior communicating artery is patent. MCA: Middle cerebral arteries are normal bilaterally. FAMILY COUNSELOR: Posterior cerebral arteries are normal bilaterally. Vertebrobasilar: The vertebral arteries are patent. The basilar artery is normal in appearance. 3D images confirm these findings. IMPRESSION: Normal head CTA.
[2024-08-08] MEDS ORDERED: NA CHLORIDE 0.9% 500 ML ONE (23:19)
[2024-08-08] MEDS ORDERED: FOLIC ACID 5 MG/ML VIAL ONE (23:20)
[2024-08-09 08:42] VITALS: TEMP 98.1
[2024-08-09 08:45] VITALS: O2SAT 97
[2024-08-09 08:48] VITALS: BP 120/95
== END 2024-08-08 23:42 | disposition short-term general hospital (02) ==
LOC: ER 19:47
DX: I63.9 Cerebral infarction, unspecified (principal); R29.712 NIHSS score 12
CPT/HCPCS: 85025; 80048; 36415; 83735; 85610; 82947; 80076; 85730; 84484; 70496; 70498; 70450; 71045; Q9967; J3101; J1200; J2919; J7040

== ENCOUNTER 2024-09-28 08:51 | Emergency (ER) | payer OTHER ==
[2024-09-28 09:52] LABS: Hematocrit 33.4 % (36.0-45.0); Hemoglobin 10.9 g/dL (12.0-15.0); MCH 25.2 pg (27.0-35.0); MCHC 32.5 g/dL (32.0-36.0); MCV 77.6 fL (80-100); MPV 7.6 fL (7.6-11.3); Platelets 387 thou/uL (152-406); RBC Red Blood Cell Count 4.31 M/uL (3.86-4.86); Red Cell Distribution Width 15.3 % (12.1-15.2)
--- NOTE | 2024-09-28 10:02 | RAD REPORT ---
EXAMINATION: Ct Stroke Brain Wo Cont-stroke protocol CLINICAL INDICATION: Female, 43 years old.STROKE ALERT TECHNIQUE: Axial CT images from the skull base to the vertex without intravenous contrast using a str mikey protocol. Coronal and sagittal reformatted images were created from the data set. One or more of the following dose reduction techniques were used: Automated exposure control, adjustment of the m A and/or kV according to patient size, and/or iterative reconstruction. Unless otherwise specified, incidental findings do not require dedicated imaging follow-up. [id number]. COMPARISON: 08/08/2024 FINDINGS: INTRACRANIAL: No acute intracranial hemorrhage. No hydrocephalus. No mass effect or midline shift. No significant white matter disease. VASCULATURE: No visualized abnormalities in the arteries or dural venous sinuses. SCALP/SKULL: No calvarial fracture identified. No acute soft tissue abnormality. SINUSES: The visualized paranasal sinuses are mostly clear. No significant mastoid fluid. IMPRESSION: No acute intracranial abnormality. THIS REPORT CONTAINS FINDINGS THAT MAY BE CRITICAL TO PATIENT CARE. The findings were communicated to Dr. Shaw on 09/28/2024 9:59 AM.
[2024-09-28 10:03] LABS: Anion Gap 7.2 mEq/L (5.0-15.0); Potassium 4.2 mEq/L (3.5-5.1)
--- NOTE | 2024-09-28 10:04 | RAD REPORT ---
EXAMINATION: Neck Angio CLINICAL INDICATION: Female, 43 years old. HEADACHE TECHNIQUE: Axial CT images were obtained from the aortic arch to the skull base after intravenous con trast utilizing angiographic protocol with 3D post-processing (maximum intensity projection images, volume rendered images and/or shaded surface rendered images). One or more of the following dose redu ction techniques were used: Automated exposure control, adjustment of the mA and/or kV according to patient size, and/or iterative reconstruction. Unless otherwise specified, incidental findings do not require dedicated imaging follow-up. [id number]. NASCET criteria used. Mild 0-49% stenosis Moderate 50-69% stenosis Severe 70-99% stenosis COMPARISON: 08/08/2024 FINDINGS: AORTA: Normal RIGHT: - CCA: Patent - ICA: Patent - ECA: Patent LEFT: - CCA: Patent - ICA: Patent - ECA: Patent VERTEBRAL: Patent SOFT TISSUE: No significant neck soft tissue abnormalities. The visualized lung apices are clear. 3D images confirm these findings. IMPRESSION: No arterial dissection or stenosis identified within the neck.
--- NOTE | 2024-09-28 10:07 | RAD REPORT ---
EXAMINATION: Head angio CLINICAL INDICATION: Female, 43 years old. HEADACHE TECHNIQUE: Axial CT images were obtained through the head after intravenous contrast utilizing angiog raphic protocol with 3D post-processing (maximum intensity projection images, volume rendered images and/or shaded surface rendered images). One or more of the following dose reduction technique s were used: Automated exposure control, adjustment of the mA and/or kV according to patient size, and/or iterative reconstruction. Unless otherwise specified, incidental findings do not require dedic ated imaging follow-up. COMPARISON: 08/08/2024 FINDINGS: RIGHT: ICA: Patent STEVIE: Patent MCA: Patent PROTECTION SPECIALIST: Patent LEFT: ICA: Patent STEVIE: Patent MCA: Patent PROTECTION SPECIALIST: Patent Vertebrobasilar: The vertebral arteries are patent. The basilar artery is normal in appearance. 3D images confirm these findings. IMPRESSION: No occlusion, aneurysm, or hemodynamically significant stenosis identified.
[2024-09-28 10:23] LABS: ALT/SGPT 23 U/L (13-56); AST/SGOT 15 U/L (15-37); Albumin 3.6 g/dL (3.4-5.0); Alkaline Phosphatase 88 U/L (45-117); Bilirubin Total 0.3 mg/dL (0.2-1.0); Globulin 3.7 g/dL (2.3-3.5); Magnesium 2.2 mg/dL (1.6-2.4); Protein, Total 7.3 g/dL (6.4-8.2)
[2024-09-28 10:24] LABS: Bilirubin Direct < 0.2 mg/dL (0-0.2); Bilirubin Indirect, Calculated 0.1 mg/dL (0.2-0.8); Troponin High Sensitivity < 3.0 pg/mL (<58.9)
--- NOTE | 2024-09-28 10:42 | ER ---
Nurse's Notes [facility] Name: Shoshana Elena Age: 43 yrs Sex: Female : 1980 Arrival Date: 09/28/2024 Time: 08:51 Bed 7 Private MD: Diagnosis: Transient cerebral ischemic attack, unspecified Presentation: 09/28 09:08 Chief complaint: Headache x 30 mins, BP 160/108 at work. Coronavirus screen: At this hb time, the client does not indicate any symptoms associated with coronavirus-19. Ebola Screen: No symptoms or risks identified at this time. Initial Sepsis Screen: Does the patient meet any 2 criteria? No. Patient's initial sepsis screen is negative. Does the patient have a suspected source of infection? No. Patient's initial sepsis screen is negative. Risk Assessment: Do you want to hurt yourself or someone else? Patient reports no desire to harm self or others. Onset of symptoms was September 28, 2024. 09:08 Method Of Arrival: Ambulatory hb 09:08 Acuity: TABITHA 3 hb 10:05 Acuity: TABITHA 2 ap3 Triage Assessment: 10:28 Headache History: The patient has had previous headaches and this one is similar to ap3 previous episodes. 12:03 Pain: Pain Pain began gradually. ap3 12:35 Pain: Also complains of. 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 - Infectious Disease History:: Denies. - Social history:: Smoking status: Patient denies any tobacco usage or history of. Screenin:29 Abuse screen: Denies threats or abuse. Nutritional screening: No deficits noted. ap3 Tuberculosis screening: No symptoms or risk factors identified. 10:28 VAN Screening: Arm Drift: Patient shows no arm weakness. Patient is VAN negative. ap3 11:17 Shara Swallow Protocol Brief Cognitive Screen What is your name? Normal, Where are you ap3 right now? Normal, What year is it? Normal. Oral Mechanism Examination Facial Symmetry: Normal, Motion: Normal, Lip Closure: Normal, Oral Mechanism Result: Normal. 3 oz Water Swallow Challenge: Pt able to drink all water without stopping, coughing, choking or throat clearing: Yes Result: PASS Notified: Tatiana Bradley MD. 12:03 [facility] ED Fall Risk Assessment (Adult) History of falling in the last 3 months, ap3 including since admission Yes- single mechanical fall (1 pt) Confusion or Disorientation No (0 pts) Intoxicated or Sedated No (0 pts) Impaired Gait No (0 pts) Mobility Assist Device Used No (0 pt) Altered Elimination No (0 pt) Score/Fall Risk Level 0 - 2 = Low Risk Oriented to surroundings, Maintained a safe environment, Educated pt \T\ family on fall prevention, incl call for assistance when getting out of bed, Assessed \T\ reinforced patient's understanding of fall precautions, Hourly rounding (assess needs \T\ fall precautionary measures) done, Used ambulatory aids as needed (educated on \T\ assisted with). Assessment: 09:42 General: Appears uncomfortable, Behavior is calm, cooperative, appropriate for age. ap3 Pain: Complains of pain in head. Neuro: Level of Consciousness is awake, alert, obeys commands, Oriented to person, place, time, situation, patient has right sided deficits from previous stroke. Reports headache. Neuro: Reports right sided leg pain and right sided leg dragging that happened yesterday while shopping at [employer] with her daughter. . Cardiovascular: Patient's skin is warm and dry. Respiratory: Airway is patent Respiratory effort is even, unlabored, Respiratory pattern is regular, symmetrical. 10:27 Neuro: Moves all extremities. Speech is normal, Facial symmetry appears normal. ap3 11:13 Neuro: patient sitting in bed talking on phone and conversing with family. ap3 11:55 General: attempted report to [facility]. was on hold for 15 minutes. ap3 12:02 General: report called to Marta. ap3 12:30 Reassessment: Patient and/or family updated on plan of care and expected duration. Pain ap3 level reassessed. Patient is alert, oriented x 3, equal unlabored respirations, skin warm/dry/pink. Vital Signs: 09:08 BP 163 / 106; Pulse 77; Resp 16; Temp 98.1(O); Pulse Ox 100% on R/A; Weight 79.38 kg; hb Height 5 ft. 1 in. ; Pain 9/10; 10:05 BP 156 / 99; Pulse 76; Pulse Ox 99% on R/A; ap3 10:33 BP 134 / 96; Pulse 73; Pulse Ox 99% on R/A; ap3 11:13 BP 133 / 86; Pulse 77; Resp 17; Pulse Ox 100% on R/A; ap3 11:38 BP 138 / 95; Pulse 85; Resp 16; Pulse Ox 100% on R/A; Pain 0/10; ss 12:25 BP 144 / 96; Pulse 73; Resp 17; Pulse Ox 100% ; ap3 09:08 Body Mass Index 33.07 (79.38 kg, 154.94 cm) hb 09:08 Pain Scale: Adult hb 11:38 Pain Scale: Adult ss NIH Stroke Scale Scores: 11:38 NIHSS Score: 2 ap3 ED Course: 08:54 Patient arrived in ED. mr 09:04 Tatiana Bradley MD is Attending Physician. gb1 09:10 Triage completed. hb 09:10 Arm band placed on. hb 09:20 Jaquelin Ro, RN is Primary Nurse. ap3 09:28 Patient has correct armband on for positive identification. Placed in gown. Bed in low ap3 position. Call light in reach. Side rails up X2. Adult w/ patient. Client placed on continuous cardiac and pulse oximetry monitoring. NIBP monitoring applied. clinical research monitor on. Pulse ox on. NIBP on. 09:42 Initial lab(s) drawn, by me, sent to lab. Inserted saline lock: 22 gauge in right ap3 antecubital area, using aseptic technique. Blood collected. Flushed with 10 mL NS. 09:44 PT-INR Sent. ap3 09:44 BMP Sent. ap3 09:44 CBC w/o diff Sent. ap3 09:59 CT Head Angio In Process Unspecified. EDMS 09:59 CT Neck Angio In Process Unspecified. EDMS 09:59 CT Stroke Brain w/o Contrast In Process Unspecified. EDMS 10:24 TC CALLED TO INITIATE TRANSFER, SAWYER WAS SPOKEN TO. ty 10:27 EKG done, by ED staff, reviewed by Tatiana Bradley MD. ap3 10:58 Stroke CXR 1 View In Process Unspecified. EDMS 11:54 SPOKE TO VIVIANA WITH [employer] ty 12:03 Provided Education on: fall risk education. ap3 12:03 No provider procedures requiring assistance completed. Patient transferred, IV remains ap3 in place. Administered Medications: 11:21 Not Given (pt refused. said she took ASA this morningg): mg PO once ap3 Medication: 10:28 VIS not applicable for this client. ap3 Outcome: 10:42 ER care complete, transfer ordered by . gb1 12:35 Transferred by ground EMS to [facility], [facility], ap3 12:35 Condition: good 12:36 Patient left the ED. ap3 NIH Stroke Scale - NIH Stroke Score Date: 09/28/2024 Time: 11:38 Total Score = 2 10. Dysarthria (speech clarity - read or repeat words) - 0(Normal) 11. Extinction and Inattention (visual/tactile/auditory/spatial/personal) - 0(No abnormality) 1a. Level of Consciousness (LOC) - 0(Alert) 1b. Level of Consciousness (LOC) (Month \T\ Age) - 0(Both) 1c. LOC Commands (Open \T\ Closes Eyes/English Instructor) - 0(Both) 2. Best Gaze (Lateral Gaze Paresis) - 0(Normal) 3. Visual Field Loss - 0(No visual loss) 4. Facial Palsy - 0(Normal) 5a. Left Arm: Motor (10-second hold) - 0(No drift) 5b. Right Arm: Motor (10-second hold) - 1(Drift) 6a. Left Leg: Motor (5-second hold - always test supine) - 0(No drift) 6b. Right Leg: Motor (5-second hold - always test supine) - 1(Drift) 7. Limb Ataxia (finger/nose \T\ heel/franklin - test with eyes open) - 0(Absent) 8. Sensory Loss (pinprick arms/legs/face) - 0(Normal) 9. Best Language: Aphasia (description/naming/reading) - 0(No aphasia) Initials: ap3 Signatures: Dispatcher [employer] EDMI Austin Gisselle, Reg Reg mr GordilloGina, Terri Mead RN, RN RN hb Prokisch, Amanda, RN RN ap3 Tatiana Bradley MD MD gb1 Buddy Nguyen Corrections: (The following items were deleted from the chart) 09:10 09:10 PMHx: CVA (Lupus erythematosus); hb hb
--- NOTE | 2024-09-28 10:42 | EDPHYS ---
Physician Documentation [facility] Name: Shoshana Elena Age: 43 yrs Sex: Female : 1980 Arrival Date: 09/28/2024 Time: 08:51 Bed 7 Private MD: ED Physician Tatiana Bradley HPI: 09/28 09:43 This 43 yrs old Female presents to ER via Ambulatory with complaints of High gb1 Blood Pressure, Headache. 09:43 43-year-old female with history of lupus and residual deficits with right-sided gb1 weakness presents with elevated blood pressure and headache today while she was at work. She states the headache came on as pounding and that light made the headache worse. She takes no medications and does not have a neurologist of record. On arrival she reports her blood pressure was elevated and her right side feels weaker than normal. She denies any fall or dizziness. She denies any chest pain or shortness of breath.. 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 - Infectious Disease History:: Denies. - Social history:: Smoking status: Patient denies any tobacco usage or history of. Exam: 09:43 Constitutional: This is a well developed, well nourished patient who is awake, alert, gb1 and in no acute distress. Head/Face: Normocephalic, atraumatic. Eyes: Pupils equal round and reactive to light, extra-ocular motions intact. Lids and lashes normal. Conjunctiva and sclera are non-icteric and not injected. Cornea within normal limits. Periorbital areas with no swelling, redness, or edema. ENT: Nares patent. No nasal discharge, no septal abnormalities noted. Tympanic membranes are normal and external auditory canals are clear. Oropharynx with no redness, swelling, or masses, exudates, or evidence of obstruction, uvula midline. Mucous membranes moist. Neck: Trachea midline, no thyromegaly or masses palpated, and no cervical lymphadenopathy. Supple, full range of motion without nuchal rigidity, or vertebral point tenderness. No Meningismus. Chest/axilla: Normal chest wall appearance and motion. Nontender with no deformity. No lesions are appreciated. Cardiovascular: Regular rate and rhythm with a normal S1 and S2. No gallops, murmurs, or rubs. Normal PMI, no JVD. No pulse deficits. Respiratory: Lungs have equal breath sounds bilaterally, clear to auscultation and percussion. No rales, rhonchi or wheezes noted. No increased work of breathing, no retractions or nasal flaring. Abdomen/GI: Soft, non-tender, with normal bowel sounds. No distension or tympany. No guarding or rebound. No evidence of tenderness throughout. Back: No spinal tenderness. No costovertebral tenderness. Full range of motion. Skin: Warm, dry with normal turgor. Normal color with no rashes, no lesions, and no evidence of cellulitis. MS/ Extremity: Pulses equal, no cyanosis. Neurovascular intact. Full, normal range of motion. Patient with a 2 out of 5 strength on the right upper and lower extremity. Sensory intact. Neuro: Awake and alert, GCS 15, oriented to person, place, time, and situation. Cranial nerves II-XII grossly intact. Motor strength 5/5 in all extremities. Sensory grossly intact. Cerebellar exam normal. Normal gait. Psych: Awake, alert, with orientation to person, place and time. Behavior, mood, and affect are within normal limits. Vital Signs: 09:08 BP 163 / 106; Pulse 77; Resp 16; Temp 98.1(O); Pulse Ox 100% on R/A; Weight 79.38 kg; hb Height 5 ft. 1 in. ; Pain 9/10; 10:05 BP 156 / 99; Pulse 76; Pulse Ox 99% on R/A; ap3 10:33 BP 134 / 96; Pulse 73; Pulse Ox 99% on R/A; ap3 11:13 BP 133 / 86; Pulse 77; Resp 17; Pulse Ox 100% on R/A; ap3 11:38 BP 138 / 95; Pulse 85; Resp 16; Pulse Ox 100% on R/A; Pain 0/10; ss 12:25 BP 144 / 96; Pulse 73; Resp 17; Pulse Ox 100% ; ap3 09:08 Body Mass Index 33.07 (79.38 kg, 154.94 cm) hb 09:08 Pain Scale: Adult hb 11:38 Pain Scale: Adult ss NIH Stroke Scale Scores: 11:38 NIHSS Score: 2 ap3 MDM: 09:18 Medical Screening Exam initiated gb1 09:43 Differential diagnosis: hypertensive crisis, CVA, intracerebral hemorrhage. Data gb1 reviewed: vital signs, nurses notes. 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 This may be a reactivation of previous vasculitic stroke as well as complicated by hypertensive urgency versus emergency. I have referred her to [facility] discussed case with Dr. Aranda and Dr. Patiño the on-call neurologist. Patient has an NIH stroke score of 2 here but likely secondary to residual deficits. Patient will be admitted by the inpatient telemetry hospitalist.. 09/28 09:18 Order name: CBC w/o diff; Complete Time: 10:20 09/28 09:18 Order name: BMP; Complete Time: 10:20 09/28 09:46 Order name: Hepatic Function; Complete Time: 10:38 09/28 09:46 Order name: High Sensitivity Troponin; Complete Time: 10:38 09/28 09:46 Order name: Magnesium; Complete Time: 10:38 09/28 09:46 Order name: Ptt, Activated; Complete Time: 10:38 09/28 09:46 Order name: UDS 09/28 09:47 Order name: Test, Urine 09/28 09:18 Order name: CT Head Angio; Complete Time: 10:20 09/28 09:46 Order name: CT Neck Angio; Complete Time: 10:20 09/28 09:46 Order name: CT Stroke Brain w/o Contrast; Complete Time: 10:20 09/28 09:46 Order name: Stroke CXR 1 View 09/28 09:46 Order name: Accucheck; Complete Time: 10:51 09/28 09:46 Order name: Cardiac monitoring; Complete Time: 10:02 09/28 09:46 Order name: EKG - Nurse/Tech; Complete Time: 10:34 09/28 09:46 Order name: IV Saline Lock; Complete Time: 10:02 09/28 09:46 Order name: Labs collected and sent; Complete Time: 10:02 09/28 09:46 Order name: NPO; Complete Time: 10:02 09/28 09:46 Order name: O2 Per Protocol; Complete Time: 10:02 09/28 09:46 Order name: O2 Sat Monitoring; Complete Time: 10:02 09/28 09:46 Order name: Stroke Swallow Screen; Complete Time: 11:13 gb1 Administered Medications: 11:21 Not Given (pt refused. said she took ASA this morningg): [id number] mg PO once ap3 Disposition Summary: 09/28/24 10:42 Transfer Ordered Notes: Transfer Location: [facility] gb1 Reason: Higher level of care gb1 Condition: Stable gb1 Problem: an acute exacerbation gb1 Symptoms: have improved gb1 Accepting Physician: Haroon Devi (neuro)(09/28/24 12:36) ap3 Diagnosis - Transient cerebral ischemic attack, unspecified gb1 Forms: - Medication Reconciliation Form gb1 - SBAR form gb1 NIH Stroke Scale - NIH Stroke Score Date: 09/28/2024 Time: 11:38 Total Score = 2 10. Dysarthria (speech clarity - read or repeat words) - 0(Normal) 11. Extinction and Inattention (visual/tactile/auditory/spatial/personal) - 0(No abnormality) 1a. Level of Consciousness (LOC) - 0(Alert) 1b. Level of Consciousness (LOC) (Month \T\ Age) - 0(Both) 1c. LOC Commands (Open \T\ Closes Eyes/Loan Approver) - 0(Both) 2. Best Gaze (Lateral Gaze Paresis) - 0(Normal) 3. Visual Field Loss - 0(No visual loss) 4. Facial Palsy - 0(Normal) 5a. Left Arm: Motor (10-second hold) - 0(No drift) 5b. Right Arm: Motor (10-second hold) - 1(Drift) 6a. Left Leg: Motor (5-second hold - always test supine) - 0(No drift) 6b. Right Leg: Motor (5-second hold - always test supine) - 1(Drift) 7. Limb Ataxia (finger/nose \T\ heel/franklin - test with eyes open) - 0(Absent) 8. Sensory Loss (pinprick arms/legs/face) - 0(Normal) 9. Best Language: Aphasia (description/naming/reading) - 0(No aphasia) Initials: ap3 Signatures: Dispatcher [employer] EDMS Terri Day, RN RN Jaquelin Ro RN RN ap3 Tatiana Bradley MD MD gb1 Corrections: (The following items were deleted from the chart) 09:10 09:10 PMHx: CVA (Lupus erythematosus); hb hb 09:47 09:47 CT-STROKE BRAIN W/O CONTRAST+CT.RAD.BRZ ordered. EDMS EDMS 09:47 09:47 Chest Single View+RAD.RAD.BRZ ordered. EDMS EDMS 09:47 09:47 Test, Urine+UC.LAB.BRZ ordered. EDMS EDMS 10:14 09:47 CBC+H.LAB.BRZ ordered. EDMS EDMS 10:56 10:42 Haroon (neuro) gb1 gb1 12:36 10:56 Haroon Devi (neuro) gb1 ap3
--- NOTE | 2024-09-28 11:05 | RAD REPORT ---
EXAM: Chest Single View HISTORY: 43 years Female DYSPNEA COMPARISON: 08/08/2024 FINDINGS: LUNGS/PLEURA: Low lung volumes but no definite acute process. CARDIAC/MEDIASTINUM: The cardiac silhouette is within normal limits. UPPER ABDOMEN: No significant abnormality. BONES: No acute abnormality. LINES/TUBES/OTHER: N/A IMPRESSION: Low lung volumes but no definite acute process.
[2024-09-28] MEDS ORDERED: ASPIRIN 325 MG TAB ONE (11:17)
[2024-09-28 12:34] LABS: Specific Gravity > 1.030 (1.005-1.030)
[2024-09-28 12:35] LABS: Barbiturates NEGATIVE (NEGATIVE); Benzodiazepines NEGATIVE (NEGATIVE); Cocaine NEGATIVE (NEGATIVE); METHAMPHETAM NEGATIVE (NEGATIVE); Methadone NEGATIVE (NEGATIVE); Opiates NEGATIVE (NEGATIVE); Phencyclidine NEGATIVE (NEGATIVE); THC Cannibis NEGATIVE (NEGATIVE)
[2024-09-28 12:42] VITALS: TEMP 98.1
[2024-09-28 12:45] VITALS: O2SAT 100
[2024-09-28 12:47] VITALS: BP 144/96
--- NOTE | 2024-10-01 12:10 | EKG ---
Test Date: 2024-09-28 Test Time: 10:19:49 Value Analyst: ALP MEASUREMENT RESULTS: Intervals: Rate: 70 KS: 154 QRSD: 66 QT: 408 QTc: 440 [place]: P: 56 KS: 154 QRS: 79 T: 24 INTERPRETIVE STATEMENTS: Normal sinus rhythm Normal ECG Compared to ECG 08/08/2024 20:01:53 ST (T wave) deviation no longer present Electronically Signed On 10-01-24 12:03:04 CDT by Regino Ridley
== END 2024-09-28 12:36 | disposition short-term general hospital (02) ==
LOC: ER 08:51
DX: G45.9 Transient cerebral ischemic attack, unspecified (principal); R29.702 NIHSS score 2; I69.351 Hemiplegia and hemiparesis following cerebral infarction affecting right dominant side
CPT/HCPCS: 80048; 36415; 83735; 81025; 80076; 85730; 85027; 84484; 80307; 70496; 70498; 70450; 71045; 99285; Q9967 ×2; 93005